=== PATIENT | female | born 1965 | race Caucasian/White ===

== ENCOUNTER 2016-03-13 18:31 | Emergency (ER) | payer OTHER ==
[~2016-03-13] VITALS: Ht 175.2 cm; Wt 90.7 kg
[2016-03-13 18:31] VITALS: BP 136/79
[~2016-03-13 18:31] MED LIST: AMOXICILLIN500 MG PO; DULE1ARO1 INH; FLEXERIL10 MG PO; HYDROCODONE BIT1 T11 PO; IMITREX5 MG NS; KLONOPIN2 MG PO; MOTRIN800 MG PO; Motrin,Rufen800 MG PO; NAPROSYN500 MG PO; NORCO 325 MG-51 TAB PO; PARAFON FORTE500 MG PO; PREDNICOT10 MG PO; PRILOSEC20 MG PO; PROZAC40 MG PO; ROBITUSSIN AC 110 ML PO; SYNTHROID,LEV200 MCG PO; TIZANIDINE HYDRO4 MG PO; TOPAMAX25 MG PO; VENTOLIN0.09 MG/AC INH; VIBRAMYCIN100 MG PO; VICO10300 PO; VICO75300 PO; XANAX1 MG PO; ZOFRAN4 MG PO
[2016-03-13 19:30] LABS: BASO % 0.5 % (0.0-1.0); EOS # 0.2 10*3/uL (0.0-0.4); EOS % 3.7 % (1.0-4.0); HEMATOCRIT 37.5 % (37.0-47.0); HEMOGLOBIN 12.4 g/dl (12.0-16.0); LYMPH # 1.3 10*3/uL (1.3-4.4); LYMPH % 23.4 % (27.0-41.0); MEAN CELL VOLUME 88.7 fl (81.0-99.0); MEAN CORPUSCULAR HGB 29.3 pg (27.0-31.0); MEAN CORPUSCULAR HGB CONC 33.1 g/dl (33.0-37.0); MEAN PLATELET VOLUME 10.1 fl (9.6-12.3); MONO # 0.3 10*3/uL (0.1-1.0); MONO % 5.2 % (3.0-9.0); NEUT # 3.7 10*3/uL (2.3-7.9); NEUT % 66.7 % (47.0-73.0); PLATELET COUNT AUTOMATED 225 10*3/uL (130-400); RED BLOOD COUNT 4.23 10*6/uL (4.10-5.10); WHITE BLOOD COUNT 5.6 10*3/uL (4.8-10.8)
[2016-03-13 19:41] LABS: PROTHROMBIN TIME 10.1 SECONDS (9.0-12.4)
[2016-03-13 19:45] LABS: ALBUMIN 3.7 gm/dl (3.1-4.5); ALKALINE PHOSPHATASE 84 U/L (45-117); BILIRUBIN, TOTAL 0.3 mg/dl (0.2-1.0); BUN 12 mg/dl (7-24); CARBON DIOXIDE 25 mmol/L (21-32); CHLORIDE 105 mmol/L (98-107); EST GLOM FILT AFRICAN AMERICAN > 60 ml/min; GLUCOSE 117 mg/dL (65-99); POTASSIUM 3.4 mmol/L (3.5-5.1); SGOT/AST 33 IU/L (3-35); SGPT/ALT 32 U/L (12-78); SODIUM 142 mmol/L (136-145); TOTAL PROTEIN 7.1 gm/dL (6.4-8.2)
[2016-03-13] MEDS ORDERED: NORCO 5-325 TA1 EACH PO (21:39)
[2016-03-13] MEDS ORDERED: VALIUM5 MG PO (21:39)
[2016-03-13] MEDS ORDERED: NAPROSYN500 MG PO (21:39)
== END 2016-03-13 21:43 | disposition home or self-care (01) ==
LOC: ED 18:31
PROVIDERS: Internal Medicine
DX: S51.011A Laceration without foreign body of right elbow, initial encounter (principal); Z90.49 Acquired absence of other specified parts of digestive tract; Z98.890 Other specified postprocedural states; V49.88XA Car occupant (driver) (passenger) injured in other specified transport accidents, initial encounter; Y93.89 Activity, other specified; Y92.89 Other specified places as the place of occurrence of the external cause; Y99.9 Unspecified external cause status

== ENCOUNTER 2016-03-16 21:19 | Emergency (ER) | payer OTHER ==
[~2016-03-16] VITALS: Ht 172.7 cm; Wt 106.6 kg
[~2016-03-16 21:19] MED LIST changes: +NORCO 5-325 TA1 EACH PO; +VALIUM5 MG PO
[2016-03-16 21:37] VITALS: BP 120/102
[2016-03-16 22:23] LABS: BASO # 0.1 10*3/uL (0.0-0.1); BASO % 0.9 % (0.0-1.0); EOS # 0.4 10*3/uL (0.0-0.4); EOS % 5.5 % (1.0-4.0); HEMOGLOBIN 12.7 g/dl (12.0-16.0); LYMPH # 1.6 10*3/uL (1.3-4.4); LYMPH % 24.3 % (27.0-41.0); MEAN CELL VOLUME 86.8 fl (81.0-99.0); MEAN CORPUSCULAR HGB CONC 33.4 g/dl (33.0-37.0); MEAN PLATELET VOLUME 10.1 fl (9.6-12.3); MONO # 0.5 10*3/uL (0.1-1.0); NEUT # 4.1 10*3/uL (2.3-7.9); NEUT % 60.7 % (47.0-73.0); PLATELET COUNT AUTOMATED 269 10*3/uL (130-400); RED BLOOD COUNT 4.38 10*6/uL (4.10-5.10); RED CELL DISTRI WIDTH 12.7 % (0-14.5); WHITE BLOOD COUNT 6.7 10*3/uL (4.8-10.8)
[2016-03-16 22:49] LABS: ALBUMIN 3.7 gm/dl (3.1-4.5); BILIRUBIN, TOTAL 0.3 mg/dl (0.2-1.0); POTASSIUM 3.9 mmol/L (3.5-5.1); TOTAL PROTEIN 6.9 gm/dL (6.4-8.2)
[2016-03-16 22:52] LABS: BILIRUBIN 1+ (NEGATIVE); BLOOD NEGATIVE (NEGATIVE); CLARITY CLEAR (CLEAR); COLOR YELLOW (YELLOW); GLUCOSE NEGATIVE (NEGATIVE); KETONE 1+ (NEGATIVE); LEUKO ESTERASE NEGATIVE (NEGATIVE); NITRITE NEGATIVE (NEGATIVE); PH 5.5 (5.0-9.0); PROTEIN TRACE (NEGATIVE); SPECIFIC GRAVITY 1.025 (1.005-1.030); UROBILINOGEN 0.2 E.U./dl (0.2-1.0)
[2016-03-16 22:57] LABS: PROTHROMBIN TIME 10.1 SECONDS (9.0-12.4)
[2016-03-16 23:06] LABS: BACTERIA 2+; MUCOUS 2+; URINE REFLEX COMMENT YES (NO)
== END 2016-03-16 23:36 | disposition home or self-care (01) ==
LOC: ED 21:19
PROVIDERS: Physician Assistant
DX: S06.0X0A Concussion without loss of consciousness, initial encounter (principal); Z90.49 Acquired absence of other specified parts of digestive tract; Z98.890 Other specified postprocedural states; V49.88XA Car occupant (driver) (passenger) injured in other specified transport accidents, initial encounter; Y93.89 Activity, other specified; Y92.89 Other specified places as the place of occurrence of the external cause; Y99.9 Unspecified external cause status

== ENCOUNTER 2016-06-06 13:15 | Emergency (ER) | payer OTHER ==
[~2016-06-06] VITALS: Ht 172.7 cm; Wt 102.1 kg
[2016-06-06 13:42] VITALS: BP 147/90
[2016-06-06] MEDS ORDERED: NAPROSYN500 MG PO (13:45)
[2016-06-06] MEDS ORDERED: 'PARAFON FORTE500 M1 PO (13:45)
== END 2016-06-06 15:52 | disposition home or self-care (01) ==
LOC: ED 13:15
DX: M54.41 Lumbago with sciatica, right side (principal); R03.0 Elevated blood-pressure reading, without diagnosis of hypertension; Z79.899 Other long term (current) drug therapy

== ENCOUNTER 2016-06-17 19:05 | Emergency (ER) | payer OTHER ==
[~2016-06-17] VITALS: Ht 172.7 cm; Wt 104.3 kg
[~2016-06-17 19:05] MED LIST changes: +'PARAFON FORTE500 M1 PO
[2016-06-17 19:13] VITALS: BP 134/86
[2016-06-17] MEDS ORDERED: Motrin,Rufen800 MG PO (20:39)
[2016-06-17] MEDS ORDERED: HYDROCODONE BIT1 T11 PO (20:39)
[2016-06-17] MEDS ORDERED: CYCLOBENZAPRINE5 M3 PO (20:39)
== END 2016-06-17 21:00 | disposition home or self-care (01) ==
LOC: ED 19:05
DX: S16.1XXA Strain of muscle, fascia and tendon at neck level, initial encounter (principal); S39.012A Strain of muscle, fascia and tendon of lower back, initial encounter; Z90.49 Acquired absence of other specified parts of digestive tract; Z79.899 Other long term (current) drug therapy; V89.2XXA Person injured in unspecified motor-vehicle accident, traffic, initial encounter; Y93.89 Activity, other specified; Y92.413 State road as the place of occurrence of the external cause; Y99.9 Unspecified external cause status

== ENCOUNTER 2016-08-22 16:21 | Emergency (ER) | payer OTHER ==
[~2016-08-22] VITALS: Ht 172.7 cm; Wt 102.1 kg
[~2016-08-22 16:21] MED LIST changes: +CYCLOBENZAPRINE5 M3 PO
[2016-08-22 17:06] VITALS: BP 125/81
[2016-08-22] MEDS ORDERED: TRINTELLIX20 MG PO (17:09)
[2016-08-22 17:38] LABS: BASO % 0.7 % (0.0-1.0); EOS # 0.2 10*3/uL (0.0-0.4); EOS % 2.9 % (1.0-4.0); HEMOGLOBIN 12.8 g/dl (12.0-16.0); LYMPH # 1.6 10*3/uL (1.3-4.4); LYMPH % 27.8 % (27.0-41.0); MEAN CORPUSCULAR HGB 29.2 pg (27.0-31.0); MEAN CORPUSCULAR HGB CONC 32.8 g/dl (33.0-37.0); MEAN PLATELET VOLUME 10.1 fl (9.6-12.3); MONO # 0.4 10*3/uL (0.1-1.0); MONO % 6.6 % (3.0-9.0); NEUT # 3.4 10*3/uL (2.3-7.9); NEUT % 61.6 % (47.0-73.0); PLATELET COUNT AUTOMATED 212 10*3/uL (130-400); RED BLOOD COUNT 4.38 10*6/uL (4.10-5.10); RED CELL DISTRI WIDTH 13.5 % (0-14.5); WHITE BLOOD COUNT 5.6 10*3/uL (4.8-10.8)
[2016-08-22 17:47] LABS: PROTHROMBIN TIME 10.2 SECONDS (9.0-12.4)
[2016-08-22 17:54] LABS: ALBUMIN 3.8 gm/dl (3.1-4.5); ALKALINE PHOSPHATASE 87 U/L (45-117); BILIRUBIN, TOTAL 0.3 mg/dl (0.2-1.0); BUN 16 mg/dl (7-24); C-REACTIVE PROTEIN 0.51 MG/DL (0-0.3); CARBON DIOXIDE 29 mmol/L (21-32); CHLORIDE 102 mmol/L (98-107); CKMB < 0.5 ng/ml (0.5-3.6); CPK 121 U/L (26-192); EST GLOM FILT AFRICAN AMERICAN 46 ml/min; GLUCOSE 112 mg/dL (65-99); MAGNESIUM 1.9 mg/dL (1.5-2.1); POTASSIUM 4.2 mmol/L (3.5-5.1); SGOT/AST 21 IU/L (3-35); SGPT/ALT 26 U/L (12-78); SODIUM 143 mmol/L (136-145); TOTAL PROTEIN 7.2 gm/dL (6.4-8.2); TROPONIN I < 0.015 ng/ml (<0.045)
[2016-08-22 18:08] LABS: BILIRUBIN NEGATIVE (NEGATIVE); BLOOD NEGATIVE (NEGATIVE); CLARITY SL CLOUDY (CLEAR); COLOR YELLOW (YELLOW); GLUCOSE NEGATIVE (NEGATIVE); KETONE NEGATIVE (NEGATIVE); LEUKO ESTERASE NEGATIVE (NEGATIVE); NITRITE NEGATIVE (NEGATIVE); PROTEIN NEGATIVE (NEGATIVE); UROBILINOGEN 0.2 E.U./dl (0.2-1.0)
[2016-08-22 18:20] LABS: BACTERIA 2+; URINE REFLEX COMMENT YES (NO)
[2016-08-22 18:21] LABS: EPITHELIAL CELLS 16-20
[2016-08-22] MEDS ORDERED: CARAFATE1 G1 PO (20:58)
== END 2016-08-22 21:30 | disposition home or self-care (01) ==
LOC: ED 16:21
PROVIDERS: Emergency Medicine
DX: K29.00 Acute gastritis without bleeding (principal); M54.9 Dorsalgia, unspecified; Z79.899 Other long term (current) drug therapy

== ENCOUNTER 2016-09-05 12:37 | Emergency (ER) | payer OTHER ==
[~2016-09-05] VITALS: Wt 101.2 kg
[~2016-09-05 12:37] MED LIST changes: +CARAFATE1 G1 PO; +TRINTELLIX20 MG PO
[2016-09-05 12:43] VITALS: BP 106/67
[2016-09-05] MEDS ORDERED: CLONAZEPAM0.5 M1 PO (12:45)
[2016-09-05] MEDS ORDERED: LEVOTHYROXINE0.2 MG PO (12:46)
[2016-09-05 13:05] LABS: BILIRUBIN NEGATIVE (NEGATIVE); BLOOD NEGATIVE (NEGATIVE); CLARITY CLEAR (CLEAR); COLOR YELLOW (YELLOW); GLUCOSE NEGATIVE (NEGATIVE); KETONE NEGATIVE (NEGATIVE); LEUKO ESTERASE NEGATIVE (NEGATIVE); NITRITE NEGATIVE (NEGATIVE); PROTEIN NEGATIVE (NEGATIVE); UROBILINOGEN 0.2 E.U./dl (0.2-1.0)
[2016-09-05 13:11] LABS: BASO % 0.4 % (0.0-1.0); EOS # 0.1 10*3/uL (0.0-0.4); EOS % 2.1 % (1.0-4.0); HEMATOCRIT 40.1 % (37.0-47.0); HEMOGLOBIN 13.4 g/dl (12.0-16.0); LYMPH # 1.5 10*3/uL (1.3-4.4); LYMPH % 25.6 % (27.0-41.0); MEAN CELL VOLUME 88.3 fl (81.0-99.0); MEAN CORPUSCULAR HGB 29.5 pg (27.0-31.0); MEAN CORPUSCULAR HGB CONC 33.4 g/dl (33.0-37.0); MEAN PLATELET VOLUME 9.9 fl (9.6-12.3); MONO # 0.4 10*3/uL (0.1-1.0); MONO % 7.1 % (3.0-9.0); NEUT # 3.7 10*3/uL (2.3-7.9); NEUT % 64.3 % (47.0-73.0); PLATELET COUNT AUTOMATED 260 10*3/uL (130-400); RED BLOOD COUNT 4.54 10*6/uL (4.10-5.10); RED CELL DISTRI WIDTH 13.2 % (0-14.5); WHITE BLOOD COUNT 5.7 10*3/uL (4.8-10.8)
[2016-09-05 13:20] LABS: BACTERIA 1+; EPITHELIAL CELLS 0-2; URINE REFLEX COMMENT NO (NO); WBC 0-2 wbc/hpf (0-5)
[2016-09-05 13:26] LABS: ALBUMIN 3.7 gm/dl (3.1-4.5); BILIRUBIN, TOTAL 0.4 mg/dl (0.2-1.0); POTASSIUM 4.1 mmol/L (3.5-5.1); TOTAL PROTEIN 7.3 gm/dL (6.4-8.2)
[2016-09-05] MEDS ORDERED: ZOFRAN4 MG PO (13:31)
[2016-09-05] MEDS ORDERED: NAPROSYN500 MG PO (13:31)
== END 2016-09-05 13:37 | disposition home or self-care (01) ==
LOC: ED 12:37
PROVIDERS: Nurse Practitioner Family
DX: R10.9 Unspecified abdominal pain (principal); Z90.49 Acquired absence of other specified parts of digestive tract

== ENCOUNTER 2016-11-16 19:18 | Emergency (ER) | payer OTHER ==
[~2016-11-16] VITALS: Ht 172.7 cm; Wt 106.6 kg
[~2016-11-16 19:18] MED LIST changes: +CLONAZEPAM0.5 M1 PO; +LEVOTHYROXINE0.2 MG PO
[2016-11-16 19:34] VITALS: BP 180/100
[2016-11-16 20:15] LABS: BASO % 0.4 % (0.0-1.0); EOS # 0.1 10*3/uL (0.0-0.4); EOS % 0.9 % (1.0-4.0); HEMATOCRIT 44.3 % (37.0-47.0); HEMOGLOBIN 14.9 g/dl (12.0-16.0); LYMPH # 2.2 10*3/uL (1.3-4.4); LYMPH % 19.6 % (27.0-41.0); MEAN CELL VOLUME 90.2 fl (81.0-99.0); MEAN CORPUSCULAR HGB 30.3 pg (27.0-31.0); MEAN CORPUSCULAR HGB CONC 33.6 g/dl (33.0-37.0); MEAN PLATELET VOLUME 9.8 fl (9.6-12.3); MONO # 0.8 10*3/uL (0.1-1.0); MONO % 6.9 % (3.0-9.0); NEUT # 8.1 10*3/uL (2.3-7.9); NEUT % 71.8 % (47.0-73.0); PLATELET COUNT AUTOMATED 331 10*3/uL (130-400); RED BLOOD COUNT 4.91 10*6/uL (4.10-5.10); RED CELL DISTRI WIDTH 13.9 % (0-14.5); WHITE BLOOD COUNT 11.2 10*3/uL (4.8-10.8)
[2016-11-16 20:31] LABS: ALBUMIN 4.4 gm/dl (3.1-4.5); CREATININE 1.28 mg/dL (0.55-1.02); POTASSIUM 3.5 mmol/L (3.5-5.1); TOTAL PROTEIN 8.7 gm/dL (6.4-8.2)
[2016-11-16] MEDS ORDERED: ZOFRAN ODT4 MG SL (23:00)
== END 2016-11-16 23:21 | disposition home or self-care (01) ==
LOC: ED 19:18
PROVIDERS: Physician Assistant
DX: R10.13 Epigastric pain (principal); R11.2 Nausea with vomiting, unspecified; Z90.49 Acquired absence of other specified parts of digestive tract; Z98.890 Other specified postprocedural states; Z79.899 Other long term (current) drug therapy

== ENCOUNTER 2017-01-27 15:28 | Emergency (ER) | payer OTHER ==
[~2017-01-27] VITALS: Wt 99.3 kg
[~2017-01-27 15:28] MED LIST changes: +ZOFRAN ODT4 MG SL
[2017-01-27 15:52] VITALS: BP 99/56
[2017-01-27] MEDS ORDERED: VICODIN 5-3001 EACH PO (15:53)
[2017-01-27 16:23] LABS: BILIRUBIN NEGATIVE (NEGATIVE); BLOOD NEGATIVE (NEGATIVE); CLARITY CLEAR (CLEAR); COLOR YELLOW (YELLOW); GLUCOSE NEGATIVE (NEGATIVE); KETONE NEGATIVE (NEGATIVE); LEUKO ESTERASE NEGATIVE (NEGATIVE); NITRITE NEGATIVE (NEGATIVE); PH 5.5 (5.0-9.0); UROBILINOGEN 0.2 E.U./dl (0.2-1.0)
[2017-01-27 16:25] LABS: BASO % 0.6 % (0.0-1.0); EOS # 0.5 10*3/uL (0.0-0.4); EOS % 6.9 % (1.0-4.0); HEMATOCRIT 40.7 % (37.0-47.0); HEMOGLOBIN 13.6 g/dl (12.0-16.0); LYMPH # 1.3 10*3/uL (1.3-4.4); LYMPH % 19.4 % (27.0-41.0); MEAN CELL VOLUME 92.5 fl (81.0-99.0); MEAN CORPUSCULAR HGB 30.9 pg (27.0-31.0); MEAN CORPUSCULAR HGB CONC 33.4 g/dl (33.0-37.0); MEAN PLATELET VOLUME 9.9 fl (9.6-12.3); MONO # 0.4 10*3/uL (0.1-1.0); MONO % 5.4 % (3.0-9.0); NEUT # 4.4 10*3/uL (2.3-7.9); NEUT % 67.5 % (47.0-73.0); PLATELET COUNT AUTOMATED 242 10*3/uL (130-400); RED CELL DISTRI WIDTH 12.2 % (0-14.5); WHITE BLOOD COUNT 6.5 10*3/uL (4.8-10.8)
[2017-01-27 16:41] LABS: BACTERIA TRACE; WBC 0-2 wbc/hpf (0-5)
[2017-01-27 16:41] LABS: ALBUMIN 4.2 gm/dl (3.1-4.5); CREATININE 1.16 mg/dL (0.55-1.02); POTASSIUM 5.2 mmol/L (3.5-5.1); TOTAL PROTEIN 7.6 gm/dL (6.4-8.2)
[2017-01-27] MEDS ORDERED: NORCO 10-325 T1 EACH PO (17:43)
== END 2017-01-27 16:58 | disposition home or self-care (01) ==
LOC: ED 15:28
PROVIDERS: Emergency Medicine
DX: R19.00 Intra-abdominal and pelvic swelling, mass and lump, unspecified site (principal); Z79.899 Other long term (current) drug therapy; Z90.49 Acquired absence of other specified parts of digestive tract

== ENCOUNTER → 2017-01-28 | Outpatient (CLI) | payer OTHER ==
[~2017-01-28] MED LIST changes: +NORCO 10-325 T1 EACH PO; +VICODIN 5-3001 EACH PO
== END | disposition home or self-care (01) ==
LOC: US 14:23
DX: N83.8 Other noninflammatory disorders of ovary, fallopian tube and broad ligament (principal); Z90.710 Acquired absence of both cervix and uterus

== ENCOUNTER 2017-01-29 09:21 | Emergency (ER) | payer OTHER ==
[~2017-01-29] VITALS: Ht 172.7 cm; Wt 99.3 kg
[2017-01-29 09:55] LABS: BASO % 0.2 % (0.0-1.0); EOS # 0.1 10*3/uL (0.0-0.4); EOS % 1.2 % (1.0-4.0); HEMATOCRIT 35.1 % (37.0-47.0); HEMOGLOBIN 11.5 g/dl (12.0-16.0); LYMPH # 0.7 10*3/uL (1.3-4.4); LYMPH % 6.8 % (27.0-41.0); MEAN CELL VOLUME 93.1 fl (81.0-99.0); MEAN CORPUSCULAR HGB 30.5 pg (27.0-31.0); MEAN CORPUSCULAR HGB CONC 32.8 g/dl (33.0-37.0); MEAN PLATELET VOLUME 9.8 fl (9.6-12.3); MONO # 0.9 10*3/uL (0.1-1.0); MONO % 9.3 % (3.0-9.0); NEUT # 7.9 10*3/uL (2.3-7.9); NEUT % 82.1 % (47.0-73.0); PLATELET COUNT AUTOMATED 213 10*3/uL (130-400); RED BLOOD COUNT 3.77 10*6/uL (4.10-5.10); RED CELL DISTRI WIDTH 12.5 % (0-14.5); WHITE BLOOD COUNT 9.6 10*3/uL (4.8-10.8)
[2017-01-29 10:11] LABS: ALBUMIN 3.6 gm/dl (3.1-4.5); ALKALINE PHOSPHATASE 82 U/L (45-117); BUN 14 mg/dl (7-24); CHLORIDE 101 mmol/L (98-107); CREATININE 1.12 mg/dL (0.55-1.02); SGOT/AST 14 IU/L (3-35); SGPT/ALT 13 U/L (12-78); SODIUM 138 mmol/L (136-145); TOTAL PROTEIN 7.1 gm/dL (6.4-8.2)
[2017-01-29 10:14] LABS: POTASSIUM 4.1 mmol/L (3.5-5.1)
[2017-01-29 14:56] VITALS: BP 104/60
== END 2017-01-29 16:28 | disposition short-term general hospital (02) ==
LOC: ED 09:21
PROVIDERS: Nurse Practitioner Family
DX: R10.31 Right lower quadrant pain (principal); R10.32 Left lower quadrant pain; R19.00 Intra-abdominal and pelvic swelling, mass and lump, unspecified site

== ENCOUNTER 2017-02-16 15:50 | Emergency (ER) | payer OTHER ==
[~2017-02-16] VITALS: Ht 172.7 cm; Wt 99.8 kg
[~2017-02-16 15:50] MED LIST changes: -LEVOTHYROXINE0.2 MG PO; +LEVOTHYROXINE200 MC2 PO
[2017-02-16 15:54] VITALS: BP 119/79
[2017-02-19] MEDS ORDERED: PROTONIX40 MG PO (11:14)
[2017-02-19] MEDS ORDERED: TRAZODONE100 MG PO (11:18)
[2017-02-19] MEDS ORDERED: FLONASE ALLERG9.9 ML NAS (11:19)
== END 2017-02-16 16:17 | disposition home or self-care (01) ==
LOC: ED 15:50
DX: G89.29 Other chronic pain (principal); R10.2 Pelvic and perineal pain; Z79.899 Other long term (current) drug therapy; Z90.49 Acquired absence of other specified parts of digestive tract; Z98.890 Other specified postprocedural states

== ENCOUNTER 2017-02-23 03:05 | Inpatient (IN) | payer OTHER ==
[2017-02-19 12:42] LABS: BASO % 0.4 % (0.0-1.0); EOS # 0.1 10*3/uL (0.0-0.4); HEMATOCRIT 37.2 % (37.0-47.0); HEMOGLOBIN 11.8 g/dl (12.0-16.0); LYMPH # 1.1 10*3/uL (1.3-4.4); LYMPH % 13.3 % (27.0-41.0); MEAN CELL VOLUME 91.6 fl (81.0-99.0); MEAN CORPUSCULAR HGB 29.1 pg (27.0-31.0); MEAN CORPUSCULAR HGB CONC 31.7 g/dl (33.0-37.0); MEAN PLATELET VOLUME 9.5 fl (9.6-12.3); MONO # 0.5 10*3/uL (0.1-1.0); MONO % 5.8 % (3.0-9.0); NEUT # 6.5 10*3/uL (2.3-7.9); NEUT % 79.3 % (47.0-73.0); PLATELET COUNT AUTOMATED 511 10*3/uL (130-400); RED BLOOD COUNT 4.06 10*6/uL (4.10-5.10); RED CELL DISTRI WIDTH 12.6 % (0-14.5); WHITE BLOOD COUNT 8.2 10*3/uL (4.8-10.8)
[2017-02-19 13:13] LABS: BUN 14 mg/dl (7-24); CHLORIDE 102 mmol/L (98-107); CREATININE 1.11 mg/dL (0.55-1.02); POTASSIUM 3.9 mmol/L (3.5-5.1); SODIUM 139 mmol/L (136-145)
[2017-02-19 13:14] LABS: CEA 1.5 ng/mL
[2017-02-23] VITALS (10 sets, daily range): BP systolic 115–158; BP diastolic 73–122
[~2017-02-23] VITALS: Ht 172.7 cm; Wt 102.2 kg
--- NOTE | ~2017-02-23 | O ---
[place], [place] OPERATIVE NOTE NAME: EMILY CAMARA [facility] #: [id number] UNIT #: [id number] ROOM: 522 DOCTOR: ROSIE HANNA MD BIRTHDATE: [birth year] DOS: 02/23/2017 PREOPERATIVE DIAGNOSES: Right lower quadrant pain, pelvic mass and previous history of uterine cancer. POSTOPERATIVE DIAGNOSES: Right lower quadrant pain, pelvic mass and previous history of uterine cancer. PROCEDURE: Diagnostic laparoscopy, conversion to laparotomy, excision of pelvic mass and incidental appendectomy. SURGEON: Rosie Hanna MD ANESTHESIA: General and local, 12 mL of 0.5% Marcaine plain. INDICATIONS: This is a 51-year-old lady who presented to the office with a pelvic mass and right lower quadrant pain. She has a previous history of uterine cancer, reportedly preinvasive per her several years ago, with hysterectomy performed in 2011 in [facility], reportedly with one ovary removed and one ovary left in place on the right. She does not have any pathologic documentation of this, however. She subsequently had been fine until starting to have abdominal pain, which was diagnosed in the Emergency Room in mid January. She was actually seen in [place] at [facility] and was to have surgery before [place], but then canceled this due to some sort of logistical reason as best I could understand and then presented again in this institution for the same complaints. She seemed to have a complex pelvic mass more to the right side, possibly from the adnexa on the right. Preoperative tumor markers were unremarkable with a CA-125 of 24.3 and beta hCG of 9.0 and CEA of 1.5 ng/dL. Rest of her laboratory work for the most part was unremarkable. She is now for diagnostic laparoscopy and exploration with the risks, benefits, possible complications of procedure discussed with the patient in the office preoperatively at length. DESCRIPTION OF PROCEDURE: The patient brought to the operating suite and placed on table in supine position. Adequate conscious sedation and general anesthetic was induced. Endotracheal tube was placed and secured. Abdomen was prepped and draped in usual sterile fashion. Field block was placed over the umbilicus with 0.5% Marcaine plain and a small transverse supraumbilical incision was made and carried with cautery and blunt dissection down to the anterior fascia. This was elevated between towel clips and a Veress needle inserted in the usual fashion. Intraperitoneal placement was confirmed with saline drop test and aspiration. Pneumoperitoneum was then created without difficulty to a filling pressure of 14 mmHg and approximately 3 liters carbon dioxide flow. The abdomen was then cannulated with 5 mm bladeless XL trocar with a 0 degree laparoscope within. Intraperitoneal placement was confirmed and the laparoscope reinserted after removing the obturator. The patient was immediately seen to have some sort of inflammatory process in the right lower quadrant, which did not appear to involve the appendix ____ was inferior and slightly lateral. There was a little bit of what looks like inflammatory change and/old blood present. The patient had the trocars then placed in the left mid lower quadrant and suprapubic [place], [place] OPERATIVE NOTE NAME: EMILY CAMARA UNIT #: [id number] ROOM: 2 DOCTOR: ROSIE HANNA MD BIRTHDATE: [birth year] through separate stab incisions under local anesthesia under direct visualization, including upsizing the umbilical port to a 12 mm port. The patient was placed in steep Trendelenburg position and rolled towards the wet end operator on the patient's left side. Dissection ensued and the patient was seen to have a rounded dark colored mass with the cecum and the tip of the appendix as well as some of small bowel adherent to this. This was swept away, but clear plane could not be seen. After several minutes of dissection, it was decided given the difficulties with ascertaining where the ureter might be as well as the possible attachments to vascular structures, it was decided to open. The patient was then rolled back in a supine position and opened through a standard low midline incision, connecting supraumbilical incision to the suprapubic port site. Once this was done, self-retaining retractor was placed and the bowel packed off. The area was inspected and the tip of the appendix was seen and was bluntly freed from this. The lesion in question was smooth, was roughly 8 cm in greatest dimension and rounded and consistent with possibly an old organized hematoma versus some sort of mesenteric cyst. With careful blunt and sharp dissection, it was freed and elevated up into the pelvis with a small pedicle still remaining from the pelvic sidewall, which was presumably part of the ovarian pedicle or broad ligament. This was seen to be lateral and well away from the ureter and iliac vessels and was clamped and divided between clamps and ligated with 0 Vicryl free tie. Specimen was handed off to pathology. This was grossly sectioned and inspected and appeared to be an organized hematoma. The attention was directed to the pelvis and the area was irrigated and suctioned dry and with this done, attention was directed to the appendix. A standard appendectomy was performed, dividing the base of the appendix between ligatures of 2-0 Vicryl, incising this and then ligating them ____ mesoappendix in similar fashion with 2-0 Vicryl and handing off the specimen. The area was irrigated once more. A 3 grams of Arixtra was placed to the leaf of the mesentery where this lesion had been adherent. It was inspected carefully for bleeding and there were no further sites present. With no further pathology, the attention was directed to wound closure. The laparotomy incision was closed en germain with 0 looped PDS from each corner, tied in the midline. The subdermal 3-0 Vicryl sutures were placed along the length of the incision. The skin was approximated with proximate clips. No drains were placed. The patient tolerated this well. She was allowed to awaken in the room and went to recovery after extubation in satisfactory condition. All sponge, needle and instrument counts were correct at the end of procedure. She received antibiotic prophylaxis and weight appropriate dose with cefazolin per SCIP protocol. She had compression devices to the lower extremities for DVT prophylaxis as well. [place], [place] OPERATIVE NOTE NAME: EMILY CAMARA Melissa UNIT #: [id number] ROOM: 522 DOCTOR: ROSIE HANNA MD BIRTHDATE: [birth year] ROSIE HANNA MD CM:OPRECORD:OPERATIVE NOTE [id number] ROSIE HANNA MD 02/23/17 185 interface
[~2017-02-23 03:05] MED LIST changes: +FLONASE ALLERG9.9 ML NAS; +PROTONIX40 MG PO; +TRAZODONE100 MG PO
[2017-02-23] MEDS ORDERED: ZANTAC 150150 MG PO (13:38)
[2017-02-24] VITALS: BP 152/81
[2017-02-24 07:28] LABS: BASO % 0.1 % (0.0-1.0); HEMATOCRIT 32.1 % (37.0-47.0); HEMOGLOBIN 10.3 g/dl (12.0-16.0); LYMPH # 1.1 10*3/uL (1.3-4.4); LYMPH % 9.8 % (27.0-41.0); MEAN CELL VOLUME 91.2 fl (81.0-99.0); MEAN CORPUSCULAR HGB 29.3 pg (27.0-31.0); MEAN CORPUSCULAR HGB CONC 32.1 g/dl (33.0-37.0); MEAN PLATELET VOLUME 10.2 fl (9.6-12.3); MONO % 8.8 % (3.0-9.0); NEUT # 9.4 10*3/uL (2.3-7.9); NEUT % 80.9 % (47.0-73.0); PLATELET COUNT AUTOMATED 370 10*3/uL (130-400); RED BLOOD COUNT 3.52 10*6/uL (4.10-5.10); RED CELL DISTRI WIDTH 12.7 % (0-14.5); WHITE BLOOD COUNT 11.7 10*3/uL (4.8-10.8)
[2017-02-24 07:39] LABS: ALBUMIN 3.2 gm/dl (3.1-4.5); ALKALINE PHOSPHATASE 96 U/L (45-117); BUN 9 mg/dl (7-24); CHLORIDE 105 mmol/L (98-107); CREATININE 1.01 mg/dL (0.55-1.02); POTASSIUM 3.7 mmol/L (3.5-5.1); SGOT/AST 54 IU/L (3-35); SGPT/ALT 62 U/L (12-78); SODIUM 141 mmol/L (136-145); TOTAL PROTEIN 6.7 gm/dL (6.4-8.2)
[2017-02-24 08:00] VITALS: BP 132/86
[2017-02-24 12:00] VITALS: BP 138/80
[2017-02-24 16:00] VITALS: BP 91/61
[2017-02-24 20:00] VITALS: BP 96/56
[2017-02-25] VITALS: BP 91/60
[2017-02-25 08:00] VITALS: BP 112/76
[2017-02-25 12:00] VITALS: BP 108/70
[2017-02-25] MEDS ORDERED: NORCO 5/325 PO (13:01)
== END 2017-02-25 14:27 | disposition home or self-care (01) | DRG 743 ==
LOC: SDC 03:05 → 5E 10:06 → SDC 10:15 → 5E 02-25 14:27
PROC: 0UT00ZZ Resection of Right Ovary, Open Approach (ICD-10-PCS; principal; 2017-02-23)
PROC: 0DTJ0ZZ Resection of Appendix, Open Approach (ICD-10-PCS; 2017-02-23)
PROC: 0DJD4ZZ Inspection of Lower Intestinal Tract, Percutaneous Endoscopic Approach (ICD-10-PCS; 2017-02-23)
DX: N83.8 Other noninflammatory disorders of ovary, fallopian tube and broad ligament (principal); K36 Other appendicitis; R19.03 Right lower quadrant abdominal swelling, mass and lump; Z85.42 Personal history of malignant neoplasm of other parts of uterus; Z90.710 Acquired absence of both cervix and uterus; Z53.31 Laparoscopic surgical procedure converted to open procedure

== ENCOUNTER 2017-03-04 08:41 | Inpatient (IN) | payer OTHER ==
[~2017-03-04] VITALS: Ht 172.7 cm; Wt 99.8 kg
--- NOTE | ~2017-03-04 | PR ---
[place], [place] PROGRESS NOTE NAME: EMILY CAMARA UNIT #: [id number] ROOM: 415 DOCTOR: CANDIS AGUERO MD BIRTHDATE: [birth year] DOS: 03/14/2017 SUBJECTIVE: The patient was seen and evaluated in followup of acute kidney injury. She is doing well. She is not having any nausea, vomiting, emesis or diarrhea. She is hopeful for discharge today. Her creatinine does seem to be improving. Her urine output was not charted, but she has been polyuric on several occasions in the past few days and she does appear to be maintaining adequate hemodynamics. PHYSICAL EXAMINATION: VITAL SIGNS: 97.6, 98, 18, 154-130/65-85, pulse ox 94% on room air. GENERAL: Awake, alert and oriented, no acute distress, pleasant mood and affect. Speech clear and cogent. LUNGS: Clear bilaterally without audible rales or wheeze. CARDIOVASCULAR: Regular rate. No audible rub. ABDOMEN: Soft, nontender, nondistended. No rebound, no guarding. No CVA tenderness. SKIN: Infection is improving. EXTREMITIES: Without cyanosis. NEUROLOGIC: Gross motor and sensation are intact. LABORATORY DATA AND DIAGNOSTICS: Sodium 143, potassium 3.4, chloride 109, bicarbonate 26, BUN 36, creatinine 5.3. This is down from 6.98 and 7 on previous occasions. Calcium 8.5, phosphorus 4.7, magnesium 1.6, albumin 3.2. She had a nonspecific bowel gas on KUB and is otherwise looking pretty good. ASSESSMENT AND PLAN: Acute kidney injury, agree with okay to discharge at this point. She is to follow up with our office within 1-2 weeks with laboratories, prior discontinue use of any NSAIDs including ibuprofen. Recommend avoidance of FIORELLA inhibitors or ARBs, diuretics at this point. Mild hypertension is permissive in the short term and we will continue to follow in the outpatient setting. Thank you very much for the kind consultation. [place], [place] PROGRESS NOTE NAME: JAXDRAGANEMILY D UNIT #: [id number] ROOM: 415 DOCTOR: CANDIS AGUERO MD BIRTHDATE: [birth year] CANDIS AGUERO MD CM:BERNY [id number] CANDIS AGUERO MD 03/14/17 2145 interface
[~2017-03-04 08:41] MED LIST changes: +NORCO 5/325 PO; +TOPAMAX25 M3 PO; -TOPAMAX25 MG PO; +ZANTAC 150150 MG PO
[2017-03-04 08:47] VITALS: BP 128/87
[2017-03-04 09:10] LABS: BASO % 0.4 % (0.0-1.0); EOS # 0.1 10*3/uL (0.0-0.4); EOS % 1.1 % (1.0-4.0); HEMATOCRIT 39.1 % (37.0-47.0); HEMOGLOBIN 12.3 g/dl (12.0-16.0); LYMPH # 0.9 10*3/uL (1.3-4.4); LYMPH % 9.1 % (27.0-41.0); MEAN CELL VOLUME 88.9 fl (81.0-99.0); MEAN CORPUSCULAR HGB CONC 31.5 g/dl (33.0-37.0); MEAN PLATELET VOLUME 9.6 fl (9.6-12.3); MONO # 0.4 10*3/uL (0.1-1.0); MONO % 4.3 % (3.0-9.0); NEUT # 8.1 10*3/uL (2.3-7.9); NEUT % 84.5 % (47.0-73.0); PLATELET COUNT AUTOMATED 515 10*3/uL (130-400); RED CELL DISTRI WIDTH 13.1 % (0-14.5); WHITE BLOOD COUNT 9.6 10*3/uL (4.8-10.8)
[2017-03-04 09:19] LABS: ACT PARTIAL THROMBO TIME 28.7 SECONDS (20.8-31.5); INTERNATIONAL NORM RATIO 1.1 (2.0-3.5)
[2017-03-04 09:26] LABS: ALBUMIN 3.8 gm/dl (3.1-4.5); ALKALINE PHOSPHATASE 147 U/L (45-117); BUN 10 mg/dl (7-24); CHLORIDE 101 mmol/L (98-107); CREATININE 1.43 mg/dL (0.55-1.02); LIPASE 61 U/L (73-393); POTASSIUM 4.1 mmol/L (3.5-5.1); SGOT/AST 16 IU/L (3-35); SGPT/ALT 26 U/L (12-78); SODIUM 137 mmol/L (136-145); TOTAL PROTEIN 8.5 gm/dL (6.4-8.2)
[2017-03-04 09:27] LABS: TROPONIN I < 0.015 ng/ml (<0.045)
[2017-03-04 10:17] LABS: BILIRUBIN 1+ (NEGATIVE); BLOOD NEGATIVE (NEGATIVE); CLARITY SL CLOUDY (CLEAR); COLOR YELLOW (YELLOW); GLUCOSE NEGATIVE (NEGATIVE); KETONE NEGATIVE (NEGATIVE); LEUKO ESTERASE NEGATIVE (NEGATIVE); NITRITE NEGATIVE (NEGATIVE); UROBILINOGEN 0.2 E.U./dl (0.2-1.0)
[2017-03-04 10:31] LABS: BACTERIA 1+; FINE GRANULAR CAST 30-40; HYALINE CAST TNTC; MUCOUS 1+
[2017-03-04 13:25] VITALS: BP 122/80
[2017-03-04 13:54] VITALS: BP 154/80
[2017-03-04 14:00] VITALS: BP 154/80
[2017-03-04] MEDS ORDERED: NORCO 5-325 TA1 EACH PO (14:56)
[2017-03-04] MEDS ORDERED: TRINTELLIX10 MG PO (14:58)
[2017-03-04] MEDS ORDERED: ZANTAC 300300 MG PO (14:59)
[2017-03-04] MEDS ORDERED: Synthroid,Lev200 MCG PO (15:00)
[2017-03-04] MEDS ORDERED: SYNTHROID25 MCG PO (15:00)
[2017-03-04] MEDS ORDERED: ZOFRAN4 MG PO (15:04)
[2017-03-04] MEDS ORDERED: ZYRTEC10 MG PO (15:04)
[2017-03-04] MEDS ORDERED: MOTRIN 600 MG E4 TAB PO (15:05)
[2017-03-04] MEDS ORDERED: TYLENOL EXTRA500 MG PO (15:05)
[2017-03-04 16:00] VITALS: BP 154/95
[2017-03-04 20:00] VITALS: BP 125/76
[2017-03-05 00:04] VITALS: BP 84/51
[2017-03-05 07:07] LABS: BASO # 0.1 10*3/uL (0.0-0.1); BASO % 0.6 % (0.0-1.0); EOS # 0.4 10*3/uL (0.0-0.4); EOS % 5.3 % (1.0-4.0); HEMATOCRIT 31.9 % (37.0-47.0); HEMOGLOBIN 9.7 g/dl (12.0-16.0); LYMPH # 1.6 10*3/uL (1.3-4.4); MEAN CELL VOLUME 93.3 fl (81.0-99.0); MEAN CORPUSCULAR HGB 28.4 pg (27.0-31.0); MEAN CORPUSCULAR HGB CONC 30.4 g/dl (33.0-37.0); MEAN PLATELET VOLUME 9.6 fl (9.6-12.3); MONO # 0.9 10*3/uL (0.1-1.0); MONO % 10.6 % (3.0-9.0); NEUT # 5.1 10*3/uL (2.3-7.9); NEUT % 62.8 % (47.0-73.0); RED BLOOD COUNT 3.42 10*6/uL (4.10-5.10); RED CELL DISTRI WIDTH 13.2 % (0-14.5); WHITE BLOOD COUNT 8.1 10*3/uL (4.8-10.8)
[2017-03-05 07:08] LABS: PLATELET COUNT AUTOMATED 354 10*3/uL (130-400)
[2017-03-05 07:34] LABS: ALBUMIN 2.8 gm/dl (3.1-4.5); CREATININE 1.82 mg/dL (0.55-1.02)
[2017-03-05 07:36] LABS: PHOSPHOROUS 3.3 mg/dL (2.5-4.9); TOTAL PROTEIN 6.2 gm/dL (6.4-8.2)
[2017-03-05 07:56] LABS: VITAMIN D, 25-HYDROXY 11.5 ng/mL (30-100)
[2017-03-05 08:00] VITALS: BP 103/61
[2017-03-05 12:00] VITALS: BP 96/54
[2017-03-05 16:00] VITALS: BP 90/47
[2017-03-05 20:00] VITALS: BP 103/67
[2017-03-06] VITALS: BP 98/50
[2017-03-06 06:39] LABS: BASO % 0.5 % (0.0-1.0); EOS # 0.5 10*3/uL (0.0-0.4); EOS % 5.8 % (1.0-4.0); HEMATOCRIT 30.9 % (37.0-47.0); HEMOGLOBIN 9.3 g/dl (12.0-16.0); LYMPH # 1.5 10*3/uL (1.3-4.4); MEAN CELL VOLUME 92.2 fl (81.0-99.0); MEAN CORPUSCULAR HGB 27.8 pg (27.0-31.0); MEAN CORPUSCULAR HGB CONC 30.1 g/dl (33.0-37.0); MEAN PLATELET VOLUME 9.9 fl (9.6-12.3); MONO # 0.7 10*3/uL (0.1-1.0); MONO % 8.4 % (3.0-9.0); NEUT # 5.2 10*3/uL (2.3-7.9); NEUT % 65.5 % (47.0-73.0); PLATELET COUNT AUTOMATED 297 10*3/uL (130-400); RED BLOOD COUNT 3.35 10*6/uL (4.10-5.10); RED CELL DISTRI WIDTH 13.2 % (0-14.5)
[2017-03-06 06:50] LABS: CREATININE 4.4 mg/dL (0.55-1.02); POTASSIUM 4.1 mmol/L (3.5-5.1)
[2017-03-06 08:00] VITALS: BP 97/58
[2017-03-06 09:37] LABS: ALBUMIN 2.6 gm/dl (3.1-4.5); PHOSPHOROUS 4.7 mg/dL (2.5-4.9)
[2017-03-06 11:27] LABS: CREATININE 4.89 mg/dL (0.55-1.02); POTASSIUM 4.1 mmol/L (3.5-5.1)
[2017-03-06 12:00] VITALS: BP 84/59
[2017-03-06 16:00] VITALS: BP 102/55
[2017-03-06 20:00] VITALS: BP 105/62
[2017-03-06 20:53] LABS: URINE CREATININE RANDOM 39.4 mg/dL
[2017-03-07] VITALS: BP 98/62
[2017-03-07 07:47] LABS: ALBUMIN 2.3 gm/dl (3.1-4.5); CREATININE 6.04 mg/dL (0.55-1.02); PHOSPHOROUS 4.9 mg/dL (2.5-4.9); POTASSIUM 4.2 mmol/L (3.5-5.1)
[2017-03-07 08:00] VITALS: BP 118/60
[2017-03-07 12:00] VITALS: BP 114/79
[2017-03-07 16:00] VITALS: BP 111/64
[2017-03-08] VITALS: BP 130/76
[2017-03-08 07:18] LABS: ALBUMIN 2.5 gm/dl (3.1-4.5); CREATININE 6.83 mg/dL (0.55-1.02); PHOSPHOROUS 5.1 mg/dL (2.5-4.9); POTASSIUM 4.9 mmol/L (3.5-5.1)
[2017-03-08 07:43] VITALS: BP 145/81
[2017-03-08 12:00] VITALS: BP 138/82
[2017-03-08 16:00] VITALS: BP 137/83
[2017-03-08 20:00] VITALS: BP 121/74
[2017-03-09] VITALS: BP 141/82
[2017-03-09 05:47] LABS: ALBUMIN 2.6 gm/dl (3.1-4.5); CREATININE 7.07 mg/dL (0.55-1.02); PHOSPHOROUS 5.9 mg/dL (2.5-4.9); POTASSIUM 4.6 mmol/L (3.5-5.1)
[2017-03-09 06:03] LABS: BASO % 0.4 % (0.0-1.0); EOS # 0.5 10*3/uL (0.0-0.4); EOS % 6.3 % (1.0-4.0); HEMATOCRIT 27.7 % (37.0-47.0); HEMOGLOBIN 8.4 g/dl (12.0-16.0); LYMPH # 0.9 10*3/uL (1.3-4.4); LYMPH % 10.6 % (27.0-41.0); MEAN CELL VOLUME 91.4 fl (81.0-99.0); MEAN CORPUSCULAR HGB 27.7 pg (27.0-31.0); MEAN CORPUSCULAR HGB CONC 30.3 g/dl (33.0-37.0); MEAN PLATELET VOLUME 10.5 fl (9.6-12.3); MONO # 0.6 10*3/uL (0.1-1.0); MONO % 6.8 % (3.0-9.0); NEUT # 6.4 10*3/uL (2.3-7.9); NEUT % 75.5 % (47.0-73.0); PLATELET COUNT AUTOMATED 231 10*3/uL (130-400); RED BLOOD COUNT 3.03 10*6/uL (4.10-5.10); RED CELL DISTRI WIDTH 13.2 % (0-14.5); WHITE BLOOD COUNT 8.4 10*3/uL (4.8-10.8)
[2017-03-09 08:00] VITALS: BP 142/92
[2017-03-09 12:00] VITALS: BP 136/98
[2017-03-09 16:00] VITALS: BP 153/92
[2017-03-09 20:00] VITALS: BP 120/73
[2017-03-10] VITALS: BP 166/90
[2017-03-10 07:37] LABS: ALBUMIN 2.7 gm/dl (3.1-4.5); CREATININE 6.98 mg/dL (0.55-1.02); PHOSPHOROUS 5.9 mg/dL (2.5-4.9); POTASSIUM 4.5 mmol/L (3.5-5.1)
[2017-03-10 08:00] VITALS: BP 151/81
[2017-03-10 12:00] VITALS: BP 152/87
[2017-03-10 16:00] VITALS: BP 155/79
[2017-03-10 20:00] VITALS: BP 155/84
[2017-03-11] VITALS: BP 138/83
[2017-03-11 07:29] LABS: ALBUMIN 2.7 gm/dl (3.1-4.5); CREATININE 6.81 mg/dL (0.55-1.02); POTASSIUM 4.5 mmol/L (3.5-5.1)
[2017-03-11 07:30] LABS: PHOSPHOROUS 5.8 mg/dL (2.5-4.9)
[2017-03-11 08:00] VITALS: BP 168/82
[2017-03-11 12:00] VITALS: BP 153/88
[2017-03-11 16:00] VITALS: BP 159/83
[2017-03-11 20:00] VITALS: BP 172/89
[2017-03-12] VITALS: BP 172/81
[2017-03-12 06:41] LABS: BASO % 0.7 % (0.0-1.0); EOS # 0.6 10*3/uL (0.0-0.4); EOS % 9.1 % (1.0-4.0); HEMATOCRIT 26.9 % (37.0-47.0); HEMOGLOBIN 8.4 g/dl (12.0-16.0); LYMPH # 1.2 10*3/uL (1.3-4.4); LYMPH % 19.1 % (27.0-41.0); MEAN CELL VOLUME 88.8 fl (81.0-99.0); MEAN CORPUSCULAR HGB 27.7 pg (27.0-31.0); MEAN CORPUSCULAR HGB CONC 31.2 g/dl (33.0-37.0); MEAN PLATELET VOLUME 10.6 fl (9.6-12.3); MONO # 0.5 10*3/uL (0.1-1.0); MONO % 7.6 % (3.0-9.0); NEUT # 3.8 10*3/uL (2.3-7.9); NEUT % 63.2 % (47.0-73.0); PLATELET COUNT AUTOMATED 225 10*3/uL (130-400); RED BLOOD COUNT 3.03 10*6/uL (4.10-5.10); RED CELL DISTRI WIDTH 13.2 % (0-14.5)
[2017-03-12 07:12] LABS: ALBUMIN 2.8 gm/dl (3.1-4.5); CREATININE 6.7 mg/dL (0.55-1.02); PHOSPHOROUS 5.4 mg/dL (2.5-4.9); POTASSIUM 3.9 mmol/L (3.5-5.1)
[2017-03-12 08:00] VITALS: BP 176/98
[2017-03-12 12:00] VITALS: BP 178/92
[2017-03-12 16:00] VITALS: BP 145/70
[2017-03-12 20:00] VITALS: BP 164/96
[2017-03-13] VITALS: BP 151/62
[2017-03-13 08:00] VITALS: BP 168/94
[2017-03-13 08:00] LABS: CREATININE 6.22 mg/dL (0.55-1.02); PHOSPHOROUS 4.6 mg/dL (2.5-4.9); POTASSIUM 3.6 mmol/L (3.5-5.1)
[2017-03-13 12:00] VITALS: BP 174/102
[2017-03-13 16:00] VITALS: BP 146/82
[2017-03-13 20:00] VITALS: BP 131/76
[2017-03-14] VITALS: BP 147/85
[2017-03-14 08:00] VITALS: BP 142/76
[2017-03-14 08:25] LABS: ALBUMIN 3.2 gm/dl (3.1-4.5); CREATININE 5.33 mg/dL (0.55-1.02); PHOSPHOROUS 4.7 mg/dL (2.5-4.9); POTASSIUM 3.4 mmol/L (3.5-5.1)
[2017-03-14 12:00] VITALS: BP 154/65
[2017-03-14] MEDS ORDERED: KLOR-CON M2020 ME1 PO (14:00)
[2017-03-14] MEDS ORDERED: AMLODIPINE BESYL5 MG PO (14:00)
[2017-03-14] MEDS ORDERED: DOXYCYCLINE100 M3 PO (14:00)
[2017-03-14] MEDS ORDERED: VITAMIN D-32000 UNI1 PO (14:00)
== END 2017-03-14 16:10 | disposition home or self-care (01) | DRG 919 ==
LOC: ED 08:41 → 4E 11:40 → EDHOLD 11:40 → 4E 11:43
PROVIDERS: Emergency Medicine; Internal Medicine; Internal Medicine Nephrology; Registered Nurse; Student in an Organized Health Care Education/Training Program
DX: L76.34 Postprocedural seroma of skin and subcutaneous tissue following other procedure (principal); A41.9 Sepsis, unspecified organism; N17.0 Acute kidney failure with tubular necrosis; E43 Unspecified severe protein-calorie malnutrition; I95.9 Hypotension, unspecified; E87.8 Other disorders of electrolyte and fluid balance, not elsewhere classified; N18.3 Chronic kidney disease, stage 3 (moderate); E83.42 Hypomagnesemia; E83.41 Hypermagnesemia; L03.311 Cellulitis of abdominal wall; E86.0 Dehydration; G89.29 Other chronic pain; J45.909 Unspecified asthma, uncomplicated; K21.9 Gastro-esophageal reflux disease without esophagitis; D64.9 Anemia, unspecified; D47.3 Essential (hemorrhagic) thrombocythemia; E66.09 Other obesity due to excess calories; Z68.33 Body mass index [BMI] 33.0-33.9, adult; K29.70 Gastritis, unspecified, without bleeding; E89.0 Postprocedural hypothyroidism; E78.5 Hyperlipidemia, unspecified; G43.909 Migraine, unspecified, not intractable, without status migrainosus; F32.9 Major depressive disorder, single episode, unspecified; M48.00 Spinal stenosis, site unspecified; M51.36 Other intervertebral disc degeneration, lumbar region; I12.9 Hypertensive chronic kidney disease with stage 1 through stage 4 chronic kidney disease, or unspecified chronic kidney disease; Y83.6 Removal of other organ (partial) (total) as the cause of abnormal reaction of the patient, or of later complication, without mention of misadventure at the time of the procedure; R73.9 Hyperglycemia, unspecified; B95.8 Unspecified staphylococcus as the cause of diseases classified elsewhere; Z79.899 Other long term (current) drug therapy; Z85.42 Personal history of malignant neoplasm of other parts of uterus; Z90.49 Acquired absence of other specified parts of digestive tract; Z98.1 Arthrodesis status; Z98.891 History of uterine scar from previous surgery; Z90.711 Acquired absence of uterus with remaining cervical stump; Z85.820 Personal history of malignant melanoma of skin; Z85.850 Personal history of malignant neoplasm of thyroid; Z82.49 Family history of ischemic heart disease and other diseases of the circulatory system; Z84.1 Family history of disorders of kidney and ureter; Y92.89 Other specified places as the place of occurrence of the external cause

== ENCOUNTER → 2017-08-21 | Outpatient (CLI) | payer OTHER ==
[~2017-08-21] MED LIST changes: +AMLODIPINE BESYL5 MG PO; +DOXYCYCLINE100 M3 PO; +KLOR-CON M2020 ME1 PO; +MOTRIN 600 MG E4 TAB PO; +SYNTHROID25 MCG PO; +Synthroid,Lev200 MCG PO; +TRINTELLIX10 MG PO; +TYLENOL EXTRA500 MG PO; +VITAMIN D-32000 UNI1 PO; +ZANTAC 300300 MG PO; +ZYRTEC10 MG PO
[2017-08-21 11:24] LABS: BILIRUBIN NEGATIVE (NEGATIVE); BLOOD NEGATIVE (NEGATIVE); CLARITY SL CLOUDY (CLEAR); COLOR YELLOW (YELLOW); GLUCOSE NEGATIVE (NEGATIVE); KETONE NEGATIVE (NEGATIVE); LEUKO ESTERASE TRACE (NEGATIVE); NITRITE NEGATIVE (NEGATIVE); UROBILINOGEN 0.2 E.U./dl (0.2-1.0)
[2017-08-21 11:29] LABS: BASO % 0.6 % (0.0-1.0); EOS # 0.2 10*3/uL (0.0-0.4); EOS % 3.4 % (1.0-4.0); HEMATOCRIT 36.6 % (37.0-47.0); HEMOGLOBIN 11.8 g/dl (12.0-16.0); LYMPH # 1.2 10*3/uL (1.3-4.4); LYMPH % 24.9 % (27.0-41.0); MEAN CORPUSCULAR HGB 28.4 pg (27.0-31.0); MEAN CORPUSCULAR HGB CONC 32.2 g/dl (33.0-37.0); MEAN PLATELET VOLUME 10.4 fl (9.6-12.3); MONO # 0.4 10*3/uL (0.1-1.0); MONO % 7.4 % (3.0-9.0); NEUT # 3.2 10*3/uL (2.3-7.9); NEUT % 63.5 % (47.0-73.0); PLATELET COUNT AUTOMATED 250 10*3/uL (130-400); RED BLOOD COUNT 4.16 10*6/uL (4.10-5.10); RED CELL DISTRI WIDTH 13.6 % (0-14.5)
[2017-08-21 11:35] LABS: BACTERIA TRACE
[2017-08-21 11:36] LABS: RBC 0-2 rbc/hpf (0-2)
[2017-08-21 12:16] LABS: ALBUMIN 4.2 gm/dl (3.1-4.5); CREATININE 1.21 mg/dL (0.55-1.02); POTASSIUM 3.8 mmol/L (3.5-5.1)
[2017-08-21 12:54] LABS: VITAMIN D, 25-HYDROXY 23.6 ng/mL (30-100)
== END | disposition home or self-care (01) ==
LOC: LAB 10:31
PROVIDERS: Internal Medicine Nephrology
DX: N18.3 Chronic kidney disease, stage 3 (moderate) (principal); N17.9 Acute kidney failure, unspecified

== ENCOUNTER 2017-08-23 11:56 | Emergency (ER) | payer OTHER ==
[~2017-08-23] VITALS: Ht 172.7 cm; Wt 95.3 kg
[2017-08-23 11:58] VITALS: BP 108/59
== END 2017-08-23 14:06 | disposition home or self-care (01) ==
LOC: ED 11:56
DX: S16.1XXA Strain of muscle, fascia and tendon at neck level, initial encounter (principal); M25.551 Pain in right hip; M25.552 Pain in left hip; Z79.899 Other long term (current) drug therapy; W18.09XA Striking against other object with subsequent fall, initial encounter; Y93.89 Activity, other specified; Y92.89 Other specified places as the place of occurrence of the external cause; Y99.8 Other external cause status

== ENCOUNTER 2018-04-13 12:04 | Emergency (ER) | payer OTHER ==
[~2018-04-13] VITALS: Ht 172.7 cm; Wt 104.3 kg
--- NOTE | ~2018-04-13 | EKG ---
[place], [place] ELECTROCARDIOGRAM REPORT NAME: EMILY CAMARA UNIT #: [id number] ROOM: DOCTOR: ERASTO DRAFT REPORT BIRTHDATE: [birth year] [facility] Test Date: 2018-04-13 Test Time: 12:20:09 Pat Name: EMILY CAMARA Department: Room: Gender: F Lunchroom Supervisor: : 1965 Requested By: ZEKE DONG Order Number: [id number] Reading MD: Measurements Intervals [place] Rate: 110 P: 45 OK: 134 QRS: -6 QRSD: 84 T: 192 QT: 390 QTc: 528 Interpretive Statements Sinus tachycardia LVH with secondary repolarization abnormality Prolonged QT interval Baseline wander in lead(s) V6 Compared to ECG 11/10/2017 13:07:57 Early repolarization now present Sinus rhythm no longer present T-wave abnormality no longer present CM:EKGRPT:ELECTROCARDIOGRAM REPORT [id number] ZEKE MAURER DRAFT REPORT ZEKE DONG M.D.
--- NOTE | ~2018-04-13 | EKG ---
[place], [place] ELECTROCARDIOGRAM REPORT NAME: EMILY CAMARA UNIT #: [id number] ROOM: DOCTOR: ERASTO DRAFT REPORT BIRTHDATE: [birth year] [facility] Test Date: 2018-04-13 Test Time: 14:54:36 Pat Name: EMILY CAMARA Department: Room: Gender: F Labor Specialist: : 1965 Requested By: ZEKE DONG Order Number: [id number] Reading MD: Measurements Intervals [place] Rate: 85 P: 62 MN: 138 QRS: -2 QRSD: 80 T: 16 QT: 426 QTc: 507 Interpretive Statements Sinus rhythm Abnormal R-wave progression, early transition Left ventricular hypertrophy Borderline abnrm T, anterolateral leads Borderline prolonged QT interval Compared to ECG 11/10/2017 13:07:57 T-wave abnormality no longer present CM:EKGRPT:ELECTROCARDIOGRAM REPORT 1454 [id number] ZEKE MAURER DRAFT REPORT ZEKE DONG M.D.
[~2018-04-13 12:04] MED LIST changes: +PERCOCET 7.5-31 EACH PO; -SYNTHROID25 MCG PO; +Synthroid,Levo50 MCG PO; +TIZANIDINE HCL2 MG PO; -TRAZODONE100 MG PO; +TRAZODONE150 MG PO; +VITAMIN D50000 UNIT PO
[2018-04-13 12:36] LABS: BASO % 0.5 % (0.0-1.0); EOS # 0.1 10*3/uL (0.0-0.4); EOS % 1.1 % (1.0-4.0); HEMOGLOBIN 12.7 g/dl (12.0-16.0); LYMPH # 1.6 10*3/uL (1.3-4.4); MEAN CELL VOLUME 97.7 fl (81.0-99.0); MEAN CORPUSCULAR HGB 29.5 pg (27.0-31.0); MEAN CORPUSCULAR HGB CONC 30.2 g/dl (33.0-37.0); MEAN PLATELET VOLUME 9.4 fl (9.6-12.3); MONO # 0.6 10*3/uL (0.1-1.0); MONO % 7.5 % (3.0-9.0); NEUT % 68.5 % (47.0-73.0); PLATELET COUNT AUTOMATED 268 10*3/uL (130-400); RED CELL DISTRI WIDTH 14.3 % (0-14.5); WHITE BLOOD COUNT 7.3 10*3/uL (4.8-10.8)
[2018-04-13 12:45] LABS: ACT PARTIAL THROMBO TIME 24.3 SECONDS (20.8-31.5)
[2018-04-13 13:06] LABS: ALBUMIN 4.4 gm/dl (3.1-4.5); ALKALINE PHOSPHATASE 76 U/L (45-117); BUN 22 mg/dl (7-24); CHLORIDE 106 mmol/L (98-107); CREATININE 1.49 mg/dL (0.55-1.02); SGOT/AST 26 IU/L (3-35); SGPT/ALT 30 U/L (12-78); SODIUM 142 mmol/L (136-145); TOTAL PROTEIN 7.9 gm/dL (6.4-8.2)
[2018-04-13 13:11] LABS: TROPONIN I < 0.015 ng/ml (<0.045)
[2018-04-13 14:19] LABS: BILIRUBIN NEGATIVE (NEGATIVE); BLOOD NEGATIVE (NEGATIVE); CLARITY CLEAR (CLEAR); COLOR YELLOW (YELLOW); GLUCOSE NEGATIVE (NEGATIVE); KETONE NEGATIVE (NEGATIVE); LEUKO ESTERASE NEGATIVE (NEGATIVE); NITRITE POSITIVE (NEGATIVE); UROBILINOGEN 0.2 E.U./dl (0.2-1.0)
[2018-04-13 14:26] LABS: URINE AMPHETAMINES < 1000 (1000ng/ml); URINE BARBITURATES < 200 (200ng/ml); URINE BENZODIAZEPINES < 200 (200ng/ml); URINE CANNABINOIDS (THC) < 50 (50ng/ml); URINE COCAINE < 300 (300ng/ml); URINE METHADONE < 300 (300ng/ml); URINE OPIATES > 300 (300ng/ml)
[2018-04-13 14:27] LABS: URINE PHENCYCLIDINE < 25 (25ng/ml)
[2018-04-13 14:28] VITALS: BP 131/89
[2018-04-13 14:33] LABS: HYALINE CAST 0-2
[2018-04-13 14:34] LABS: BACTERIA 1+; MUCOUS 2+
[2018-04-13] MEDS ORDERED: ZOFRAN4 MG PO (15:14)
[2018-04-15] MEDS ORDERED: PHENERGAN25 M3 PO (16:49)
[2018-04-15] MEDS ORDERED: TRAZODONE100 MG PO (20:24)
[2018-09-27] MEDS ORDERED: PREDNISONE50 MG PO (19:20)
== END 2018-04-13 15:17 | disposition home or self-care (01) ==
LOC: ED 12:04
PROVIDERS: Emergency Medicine; Student in an Organized Health Care Education/Training Program
DX: K52.9 Noninfective gastroenteritis and colitis, unspecified (principal); J45.909 Unspecified asthma, uncomplicated; G89.29 Other chronic pain; K21.9 Gastro-esophageal reflux disease without esophagitis; E78.5 Hyperlipidemia, unspecified; E03.9 Hypothyroidism, unspecified; E66.9 Obesity, unspecified; N18.3 Chronic kidney disease, stage 3 (moderate); Z79.899 Other long term (current) drug therapy

== ENCOUNTER 2018-05-08 13:20 | Emergency (ER) | payer OTHER ==
[~2018-05-08] VITALS: Ht 172.7 cm; Wt 99.8 kg
[~2018-05-08 13:20] MED LIST changes: +PHENERGAN25 M3 PO; +TRAZODONE100 MG PO
[2018-05-08 13:23] VITALS: BP 122/88
[2018-05-08] MEDS ORDERED: PREDNISONE20 M1 PO (15:39)
[2018-05-08] MEDS ORDERED: TESSALON PERLE100 M1 PO (15:39)
[2018-05-08] MEDS ORDERED: PROVENTIL HFA6.7 GM INH (15:39)
[2018-09-27] MEDS ORDERED: PREDNISONE50 MG PO (19:20)
== END 2018-05-08 15:51 | disposition home or self-care (01) ==
LOC: ED 13:20
DX: J45.909 Unspecified asthma, uncomplicated (principal); Z79.899 Other long term (current) drug therapy

== ENCOUNTER 2018-05-10 15:21 | Emergency (ER) | payer OTHER ==
[~2018-05-10] VITALS: Ht 172.7 cm; Wt 99.8 kg
[~2018-05-10 15:21] MED LIST changes: +PREDNISONE20 M1 PO; +PROVENTIL HFA6.7 GM INH; +TESSALON PERLE100 M1 PO
[2018-05-10 15:24] VITALS: BP 130/83
[2018-05-10] MEDS ORDERED: ZITHROMAX250 MG PO (18:54)
[2018-09-27] MEDS ORDERED: PREDNISONE50 MG PO (19:20)
== END 2018-05-10 19:30 | disposition home or self-care (01) ==
LOC: ED 15:21
DX: J02.9 Acute pharyngitis, unspecified (principal); J45.909 Unspecified asthma, uncomplicated; G89.29 Other chronic pain; K21.9 Gastro-esophageal reflux disease without esophagitis; E78.5 Hyperlipidemia, unspecified; G43.909 Migraine, unspecified, not intractable, without status migrainosus; E03.9 Hypothyroidism, unspecified; E66.9 Obesity, unspecified; N18.3 Chronic kidney disease, stage 3 (moderate); Z79.899 Other long term (current) drug therapy; Z90.49 Acquired absence of other specified parts of digestive tract; Z90.710 Acquired absence of both cervix and uterus

== ENCOUNTER 2018-06-10 08:59 | Emergency (ER) | payer OTHER ==
[~2018-06-10] VITALS: Ht 172.7 cm; Wt 99.8 kg
--- NOTE | ~2018-06-10 | EKG ---
[place], [place] ELECTROCARDIOGRAM REPORT NAME: EMILY CAMARA UNIT #: [id number] ROOM: DOCTOR: EPIPHANY DRAFT REPORT BIRTHDATE: [birth year] [facility] Test Date: 2018-06-10 Test Time: 09:49:58 Pat Name: EMILY CAMARA Department: Room: Gender: F Raw Material Planner: Fela Angulo : 1965 Requested By: RELL ALBA Order Number: [id number] Reading MD: Cory Arechiga MD Measurements Intervals [place] Rate: 100 P: 48 MI: 139 QRS: -3 QRSD: 89 T: 13 QT: 357 QTc: 461 Interpretive Statements Sinus tachycardia Low voltage, precordial leads Abnormal R-wave progression, early transition Left ventricular hypertrophy Borderline T abnormalities, anterior leads Compared to ECG 05/05/2018 19:47:31 Low QRS voltage now present T-wave abnormality now present Sinus rhythm no longer present Electronically Signed On 06-11-2018 6:54:49 PDT by Cory Arechiga MD CM:EKGRPT:ELECTROCARDIOGRAM REPORT [id number] RELL ALBA EPIPHANY DRAFT REPORT RELL ALBA
[~2018-06-10 08:59] MED LIST changes: +ZITHROMAX250 MG PO
[2018-06-10 09:01] VITALS: BP 154/72
[2018-06-10 09:43] LABS: BASO % 0.2 % (0.0-1.0); EOS # 0.1 10*3/uL (0.0-0.4); EOS % 1.1 % (1.0-4.0); HEMATOCRIT 36.6 % (37.0-47.0); HEMOGLOBIN 11.5 g/dl (12.0-16.0); LYMPH # 0.8 10*3/uL (1.3-4.4); LYMPH % 7.1 % (27.0-41.0); MEAN CELL VOLUME 92.4 fl (81.0-99.0); MEAN CORPUSCULAR HGB CONC 31.4 g/dl (33.0-37.0); MEAN PLATELET VOLUME 9.5 fl (9.6-12.3); MONO # 0.6 10*3/uL (0.1-1.0); MONO % 5.5 % (3.0-9.0); NEUT # 9.9 10*3/uL (2.3-7.9); NEUT % 85.6 % (47.0-73.0); PLATELET COUNT AUTOMATED 283 10*3/uL (130-400); RED BLOOD COUNT 3.96 10*6/uL (4.10-5.10); RED CELL DISTRI WIDTH 13.7 % (0-14.5); WHITE BLOOD COUNT 11.6 10*3/uL (4.8-10.8)
[2018-06-10 09:43] LABS: BILIRUBIN NEGATIVE (NEGATIVE); BLOOD NEGATIVE (NEGATIVE); CLARITY CLEAR (CLEAR); COLOR YELLOW (YELLOW); GLUCOSE NEGATIVE (NEGATIVE); KETONE 1+ (NEGATIVE); LEUKO ESTERASE NEGATIVE (NEGATIVE); NITRITE NEGATIVE (NEGATIVE); UROBILINOGEN 0.2 E.U./dl (0.2-1.0)
[2018-06-10 10:02] LABS: ALBUMIN 3.5 gm/dl (3.1-4.5); ALKALINE PHOSPHATASE 119 U/L (45-117); BUN 18 mg/dl (7-24); CHLORIDE 107 mmol/L (98-107); CREATININE 1.29 mg/dL (0.55-1.02); LIPASE 94 U/L (73-393); POTASSIUM 3.7 mmol/L (3.5-5.1); SGOT/AST 51 IU/L (3-35); SGPT/ALT 60 U/L (12-78); SODIUM 139 mmol/L (136-145); TOTAL PROTEIN 7.5 gm/dL (6.4-8.2); TROPONIN I < 0.015 ng/ml (<0.045)
[2018-09-27] MEDS ORDERED: PREDNISONE50 MG PO (19:20)
== END 2018-06-10 11:39 | disposition home or self-care (01) ==
LOC: ED 08:59
PROVIDERS: Nurse Practitioner Family
DX: B27.90 Infectious mononucleosis, unspecified without complication (principal); R19.7 Diarrhea, unspecified; R11.2 Nausea with vomiting, unspecified; R39.198 Other difficulties with micturition; R05 Cough; R06.02 Shortness of breath; Z79.899 Other long term (current) drug therapy

== ENCOUNTER → 2018-07-27 | Outpatient (CLI) | payer MEDICARE, MEDICAID ==
[~2018-07-27] MED LIST changes: +PREDNISONE50 MG PO
== END | disposition home or self-care (01) ==
LOC: RAD 16:27
DX: H53.8 Other visual disturbances (principal); R51 Headache

== ENCOUNTER → 2018-07-30 | Outpatient (CLI) | payer MEDICARE, MEDICAID | END | disposition home or self-care (01) | LOC: CT 15:49 | DX: S09.90XA Unspecified injury of head, initial encounter (principal); H53.8 Other visual disturbances; X58.XXXA Exposure to other specified factors, initial encounter; Y93.89 Activity, other specified; Y92.89 Other specified places as the place of occurrence of the external cause; Y99.8 Other external cause status ==

== ENCOUNTER 2018-12-13 21:46 | Emergency (ER) | payer MEDICARE, MEDICAID ==
[~2018-12-13] VITALS: Ht 172.7 cm; Wt 104.3 kg
[2018-12-14 00:30] VITALS: BP 178/94
== END 2018-12-14 00:45 | disposition home or self-care (01) ==
LOC: ED 21:46
DX: S93.402A Sprain of unspecified ligament of left ankle, initial encounter (principal); M79.671 Pain in right foot; J45.909 Unspecified asthma, uncomplicated; K21.9 Gastro-esophageal reflux disease without esophagitis; Z79.899 Other long term (current) drug therapy; Z90.710 Acquired absence of both cervix and uterus; Z90.49 Acquired absence of other specified parts of digestive tract; W13.3XXA Fall through floor, initial encounter; Y93.89 Activity, other specified; Y92.89 Other specified places as the place of occurrence of the external cause; Y99.8 Other external cause status

== ENCOUNTER → 2018-12-28 | Outpatient (CLI) | payer MEDICARE, MEDICAID ==
[~2018-12-28] MED LIST changes: +SEPTDS PO
== END | disposition home or self-care (01) ==
LOC: RAD 15:26
DX: M25.572 Pain in left ankle and joints of left foot (principal); M25.472 Effusion, left ankle

== ENCOUNTER 2019-01-05 07:49 | Emergency (ER) | payer MEDICARE, MEDICAID ==
[~2019-01-05] VITALS: Ht 172.7 cm; Wt 104.3 kg
[~2019-01-05 07:49] MED LIST changes: -SEPTDS PO
[2019-01-05 09:19] LABS: BILIRUBIN 1+ (NEGATIVE); BLOOD 1+ (NEGATIVE); CLARITY SL CLOUDY (CLEAR); COLOR YELLOW (YELLOW); GLUCOSE NEGATIVE (NEGATIVE); KETONE 2+ (NEGATIVE); LEUKO ESTERASE TRACE (NEGATIVE); NITRITE POSITIVE (NEGATIVE); SPECIFIC GRAVITY >= 1.030 (1.005-1.030); UROBILINOGEN 0.2 E.U./dl (0.2-1.0)
[2019-01-05 09:28] LABS: BACTERIA 3+; WBC TNTC wbc/hpf (0-5)
[2019-01-05 10:49] VITALS: BP 137/89
[2019-01-05] MEDS ORDERED: SEPTDS PO (11:05)
[2019-01-05] MEDS ORDERED: PHENERGAN25 M3 PO (11:05)
== END 2019-01-05 11:35 | disposition home or self-care (01) ==
LOC: ED 07:49
PROVIDERS: Emergency Medicine
DX: K29.70 Gastritis, unspecified, without bleeding (principal); N39.0 Urinary tract infection, site not specified; E66.9 Obesity, unspecified; E03.9 Hypothyroidism, unspecified; G43.909 Migraine, unspecified, not intractable, without status migrainosus; E78.5 Hyperlipidemia, unspecified; K21.9 Gastro-esophageal reflux disease without esophagitis; J45.909 Unspecified asthma, uncomplicated; N18.3 Chronic kidney disease, stage 3 (moderate); G89.29 Other chronic pain; Z90.710 Acquired absence of both cervix and uterus; Z90.49 Acquired absence of other specified parts of digestive tract

== ENCOUNTER → 2019-03-15 | Outpatient (CLI) | payer MEDICARE, MEDICAID ==
[~2019-03-15] MED LIST changes: +ADVAIR 250/501 EA NAS; +BRIN10TA PO; +FLUTICASONE-SA1 EAC4 INH; +IMITREX5 M1 NAS; +MIRALAX17 GM PO; +PROAIR HFA8.5 GM INH; +PROMETHAZINE12.5 M3 PO; +ROZEREM8 MG PO; +SENOKOT8.6 MG PO; +SEPTDS PO; +TRAZODONE HYDR300 MG PO; +VITAMIN D32000 UNI1 PO; +VOLTAREN100 GM T; +ZANAFLEX4 M1 PO
== END | disposition home or self-care (01) ==
LOC: CT 09:49
DX: S93.409A Sprain of unspecified ligament of unspecified ankle, initial encounter (principal); X58.XXXD Exposure to other specified factors, subsequent encounter

== ENCOUNTER 2019-04-10 14:12 | Inpatient (IN) | payer MEDICARE, MEDICAID ==
[~2019-04-10] VITALS: Ht 170.1 cm; Wt 99.4 kg
[~2019-04-10 14:12] MED LIST changes: -ADVAIR 250/501 EA NAS; -BRIN10TA PO; -FLUTICASONE-SA1 EAC4 INH; -IMITREX5 M1 NAS; -MIRALAX17 GM PO; -PROAIR HFA8.5 GM INH; -PROMETHAZINE12.5 M3 PO; -ROZEREM8 MG PO; -SENOKOT8.6 MG PO; -TRAZODONE HYDR300 MG PO; -VITAMIN D32000 UNI1 PO; -VOLTAREN100 GM T; -ZANAFLEX4 M1 PO
[2019-04-10 14:18] VITALS: BP 122/68
[2019-04-10 15:18] LABS: BASO % 0.5 % (0.0-1.0); EOS # 0.5 10*3/uL (0.0-0.4); EOS % 5.6 % (1.0-4.0); HEMATOCRIT 37.5 % (37.0-47.0); HEMOGLOBIN 11.9 g/dl (12.0-16.0); LYMPH # 1.3 10*3/uL (1.3-4.4); LYMPH % 15.4 % (27.0-41.0); MEAN CELL VOLUME 96.4 fl (81.0-99.0); MEAN CORPUSCULAR HGB 30.6 pg (27.0-31.0); MEAN CORPUSCULAR HGB CONC 31.7 g/dl (33.0-37.0); MONO # 0.6 10*3/uL (0.1-1.0); MONO % 7.1 % (3.0-9.0); NEUT % 71.2 % (47.0-73.0); PLATELET COUNT AUTOMATED 304 10*3/uL (130-400); RED BLOOD COUNT 3.89 10*6/uL (4.10-5.10); RED CELL DISTRI WIDTH 12.7 % (0-14.5); WHITE BLOOD COUNT 8.4 10*3/uL (4.8-10.8)
[2019-04-10 15:32] LABS: ACT PARTIAL THROMBO TIME 29.9 SECONDS (20.0-32.1); INTERNATIONAL NORM RATIO 0.9 (2.0-3.5)
[2019-04-10 15:33] LABS: ALBUMIN 3.7 gm/dl (3.1-4.5); ALKALINE PHOSPHATASE 108 U/L (45-117); BUN 17 mg/dl (7-24); CHLORIDE 104 mmol/L (98-107); CREATININE 1.27 mg/dL (0.55-1.02); LIPASE 79 U/L (73-393); POTASSIUM 4.6 mmol/L (3.5-5.1); SGOT/AST 221 IU/L (3-35); SGPT/ALT 78 U/L (12-78); SODIUM 136 mmol/L (136-145); TOTAL PROTEIN 6.9 gm/dL (6.4-8.2)
[2019-04-10 15:35] LABS: ACETAMINOPHEN (TYLENOL) < 5.0 ug/ml (10-30); TROPONIN I < 0.015 ng/ml (<0.045)
[2019-04-10 15:44] LABS: ETHYL ALCOHOL < 3.0 mg/dl (<3)
[2019-04-10 15:53] VITALS: BP 153/79
[2019-04-10 16:01] LABS: COLOR YELLOW (YELLOW)
[2019-04-10 16:02] LABS: BILIRUBIN NEGATIVE (NEGATIVE); BLOOD NEGATIVE (NEGATIVE); CLARITY CLEAR (CLEAR); GLUCOSE NEGATIVE (NEGATIVE); KETONE NEGATIVE (NEGATIVE); LEUKO ESTERASE NEGATIVE (NEGATIVE); NITRITE NEGATIVE (NEGATIVE); PH 7.5 (5.0-9.0); UROBILINOGEN 0.2 E.U./dl (0.2-1.0)
[2019-04-10 16:04] LABS: URINE AMPHETAMINES < 1000 (1000ng/ml); URINE BARBITURATES < 200 (200ng/ml); URINE BENZODIAZEPINES < 200 (200ng/ml); URINE CANNABINOIDS (THC) < 50 (50ng/ml); URINE COCAINE < 300 (300ng/ml); URINE METHADONE < 300 (300ng/ml); URINE OPIATES < 300 (300ng/ml)
[2019-04-10 16:06] LABS: URINE PHENCYCLIDINE < 25 (25ng/ml)
[2019-04-10 16:07] LABS: RBC 0-2 rbc/hpf (0-2); WBC 0-2 wbc/hpf (0-5)
[2019-04-10 16:08] LABS: BACTERIA TRACE; EPITHELIAL CELLS 0-2
[2019-04-10 17:14] VITALS: BP 139/80
[2019-04-10] MEDS ORDERED: PROVENTIL HFA6.7 GM INH (17:23)
[2019-04-10] MEDS ORDERED: PROAIR HFA8.5 GM INH (17:23)
[2019-04-10] MEDS ORDERED: PROMETHAZINE12.5 M3 PO (17:25)
[2019-04-10] MEDS ORDERED: ZANAFLEX4 M1 PO (17:26)
[2019-04-10] MEDS ORDERED: TRAZODONE HYDR300 MG PO (17:27)
[2019-04-10] MEDS ORDERED: TRINTELLIX20 MG PO (17:28)
[2019-04-10] MEDS ORDERED: VOLTAREN100 GM T (17:29)
[2019-04-10] MEDS ORDERED: FLUTICASONE-SA1 EAC4 INH (17:29)
[2019-04-10] MEDS ORDERED: SENOKOT8.6 MG PO (17:30)
[2019-04-10] MEDS ORDERED: MIRALAX17 GM PO (17:30)
[2019-04-10] MEDS ORDERED: IMITREX5 M1 NAS (17:31)
[2019-04-10] MEDS ORDERED: VITAMIN D32000 UNI1 PO (17:32)
[2019-04-10 20:00] VITALS: BP 98/60
[2019-04-11] VITALS: BP 84/51; BP 892/51; BP 92/51
[2019-04-11 06:12] LABS: BASO % 0.4 % (0.0-1.0); EOS # 0.3 10*3/uL (0.0-0.4); EOS % 5.1 % (1.0-4.0); HEMATOCRIT 37.8 % (37.0-47.0); HEMOGLOBIN 11.9 g/dl (12.0-16.0); LYMPH # 1.6 10*3/uL (1.3-4.4); MEAN CELL VOLUME 97.7 fl (81.0-99.0); MEAN CORPUSCULAR HGB 30.7 pg (27.0-31.0); MEAN CORPUSCULAR HGB CONC 31.5 g/dl (33.0-37.0); MEAN PLATELET VOLUME 10.4 fl (9.6-12.3); MONO # 0.4 10*3/uL (0.1-1.0); MONO % 6.5 % (3.0-9.0); NEUT # 4.4 10*3/uL (2.3-7.9); NEUT % 64.7 % (47.0-73.0); PLATELET COUNT AUTOMATED 280 10*3/uL (130-400); RED BLOOD COUNT 3.87 10*6/uL (4.10-5.10); WHITE BLOOD COUNT 6.7 10*3/uL (4.8-10.8)
[2019-04-11 06:21] LABS: ACT PARTIAL THROMBO TIME 27.6 SECONDS (20.0-32.1); INTERNATIONAL NORM RATIO 0.9 (2.0-3.5)
[2019-04-11 06:26] LABS: CREATININE 1.25 mg/dL (0.55-1.02); FREE T4 1.19 ng/dl (0.76-1.46)
[2019-04-11 08:00] VITALS: BP 107/66
[2019-04-11] MEDS ORDERED: ADVAIR 250/501 EA NAS (10:34)
[2019-04-11 12:00] VITALS: BP 101/60
[2019-04-11 16:00] VITALS: BP 99/62
[2019-04-11 20:00] VITALS: BP 148/90
[2019-04-12] VITALS: BP 100/83
[2019-04-12 08:00] VITALS: BP 110/60; BP 124/72
[2019-04-12 08:10] VITALS: BP 110/60
[2019-04-12] MEDS ORDERED: ROZEREM8 MG PO (10:40)
[2019-04-12] MEDS ORDERED: BRIN10TA PO (10:40)
[2019-04-12] MEDS ORDERED: TRAZODONE150 MG PO ×2 (10:40→11:24)
== END 2019-04-12 12:45 | disposition home or self-care (01) | DRG 308 ==
LOC: ED 14:12 → EDHOLD 16:28 → 4E 16:28
PROVIDERS: Internal Medicine; Nurse Practitioner Family; ADMIT Emergency Medicine
DX: R00.1 Bradycardia, unspecified (principal); G93.41 Metabolic encephalopathy; F33.2 Major depressive disorder, recurrent severe without psychotic features; F41.9 Anxiety disorder, unspecified; E89.0 Postprocedural hypothyroidism; K21.9 Gastro-esophageal reflux disease without esophagitis; J45.909 Unspecified asthma, uncomplicated; G89.29 Other chronic pain; E78.5 Hyperlipidemia, unspecified; N18.3 Chronic kidney disease, stage 3 (moderate); G47.00 Insomnia, unspecified; M54.9 Dorsalgia, unspecified; R74.0 Nonspecific elevation of levels of transaminase and lactic acid dehydrogenase [LDH]; G43.909 Migraine, unspecified, not intractable, without status migrainosus; E55.9 Vitamin D deficiency, unspecified; Z90.49 Acquired absence of other specified parts of digestive tract; Z90.721 Acquired absence of ovaries, unilateral; Z90.710 Acquired absence of both cervix and uterus; Z98.1 Arthrodesis status; Z81.8 Family history of other mental and behavioral disorders; Z85.42 Personal history of malignant neoplasm of other parts of uterus; Z85.820 Personal history of malignant melanoma of skin; Z85.850 Personal history of malignant neoplasm of thyroid; Z82.49 Family history of ischemic heart disease and other diseases of the circulatory system; Z83.3 Family history of diabetes mellitus; Z79.899 Other long term (current) drug therapy

== ENCOUNTER → 2019-05-16 | Outpatient (CLI) | payer MEDICARE, MEDICAID ==
[~2019-05-16] MED LIST changes: +ADVAIR 250/501 EA NAS; +BRIN10TA PO; +FLUTICASONE-SA1 EAC4 INH; +IMITREX5 M1 NAS; +MIRALAX17 GM PO; +PROAIR HFA8.5 GM INH; +PROMETHAZINE12.5 M3 PO; +ROZEREM8 MG PO; +SENOKOT8.6 MG PO; +TRAZODONE HYDR300 MG PO; +VITAMIN D32000 UNI1 PO; +VOLTAREN100 GM T; +ZANAFLEX4 M1 PO
== END | disposition home or self-care (01) ==
LOC: NM 07:42
DX: K30 Functional dyspepsia (principal)

== ENCOUNTER → 2020-01-17 | Outpatient (CLI) | payer MEDICARE, MEDICAID | END | disposition home or self-care (01) | LOC: COVID19 14:39 | PROVIDERS: ATTEND Student in an Organized Health Care Education/Training Program | DX: U07.1 COVID-19 (principal) ==

== ENCOUNTER 2020-01-29 18:05 | Emergency (ER) | payer MEDICARE, MEDICAID ==
[~2020-01-29] VITALS: Ht 172.7 cm; Wt 99.8 kg
[2020-01-29 18:10] VITALS: BP 94/53
== END 2020-01-30 00:53 | disposition home or self-care (01) ==
LOC: ED 18:05
DX: S82.831A Other fracture of upper and lower end of right fibula, initial encounter for closed fracture (principal); S30.0XXA Contusion of lower back and pelvis, initial encounter; S80.02XA Contusion of left knee, initial encounter; Z79.899 Other long term (current) drug therapy; Z90.49 Acquired absence of other specified parts of digestive tract; Z90.710 Acquired absence of both cervix and uterus; W10.8XXA Fall (on) (from) other stairs and steps, initial encounter; Y93.89 Activity, other specified; Y92.098 Other place in other non-institutional residence as the place of occurrence of the external cause; Y99.8 Other external cause status

== ENCOUNTER 2020-03-11 07:04 | Emergency (ER) | payer MEDICARE, MEDICAID ==
[~2020-03-11] VITALS: Wt 99.8 kg
[2020-03-11 07:29] VITALS: BP 162/91
[2020-03-11] MEDS ORDERED: AUGMENTIN 875875 MG PO (07:40)
== END 2020-03-11 07:55 | disposition home or self-care (01) ==
LOC: ED 07:04
DX: L03.213 Periorbital cellulitis (principal); J45.909 Unspecified asthma, uncomplicated; K21.9 Gastro-esophageal reflux disease without esophagitis; E78.5 Hyperlipidemia, unspecified; Z88.1 Allergy status to other antibiotic agents; Z79.899 Other long term (current) drug therapy

== ENCOUNTER → 2020-07-20 | Outpatient (CLI) | payer OTHER ==
[~2020-07-20] MED LIST changes: +AUGMENTIN 875875 MG PO
== END | disposition home or self-care (01) ==
LOC: RAD 13:41
PROVIDERS: ATTEND Family Medicine
DX: R19.02 Left upper quadrant abdominal swelling, mass and lump (principal); Z90.49 Acquired absence of other specified parts of digestive tract

== ENCOUNTER → 2020-08-15 | Outpatient (CLI) | payer OTHER | END | disposition home or self-care (01) | LOC: CT 08-13 14:00 | PROVIDERS: ATTEND Family Medicine | DX: R19.02 Left upper quadrant abdominal swelling, mass and lump (principal); M48.061 Spinal stenosis, lumbar region without neurogenic claudication; M48.07 Spinal stenosis, lumbosacral region; Z90.49 Acquired absence of other specified parts of digestive tract ==

== ENCOUNTER → 2020-09-04 | Outpatient (CLI) | payer OTHER ==
[2020-09-04 12:33] LABS: BASO % 0.6 % (0.0-1.0); EOS # 0.1 10*3/uL (0.0-0.4); EOS % 2.2 % (1.0-4.0); HEMATOCRIT 38.1 % (37.0-47.0); LYMPH # 1.3 10*3/uL (1.3-4.4); LYMPH % 26.1 % (27.0-41.0); MEAN CELL VOLUME 90.5 fl (81.0-99.0); MEAN CORPUSCULAR HGB 28.7 pg (27.0-31.0); MEAN CORPUSCULAR HGB CONC 31.8 g/dl (33.0-37.0); MEAN PLATELET VOLUME 9.1 fl (9.6-12.3); MONO # 0.4 10*3/uL (0.1-1.0); MONO % 8.1 % (3.0-9.0); NEUT # 3.1 10*3/uL (2.3-7.9); NEUT % 62.6 % (47.0-73.0); PLATELET COUNT AUTOMATED 224 10*3/uL (130-400); RED BLOOD COUNT 4.21 10*6/uL (4.10-5.10); RED CELL DISTRI WIDTH 14.1 % (0-14.5)
[2020-09-04 12:39] LABS: BILIRUBIN Negative (Negative); BLOOD Negative (Negative); CLARITY Clear (Clear); COLOR Yellow (Yellow); GLUCOSE Negative (Negative); KETONE Negative (Negative); LEUKO ESTERASE Negative (Negative); NITRITE Negative (Negative); SPECIFIC GRAVITY 1.025 (1.001-1.030); UROBILINOGEN 0.2 E.U./dl (0.0-1.0)
[2020-09-04 12:47] LABS: ALBUMIN 4.1 gm/dl (3.1-4.5); BUN 21 mg/dl (7-24); CHLORIDE 105 mmol/L (98-107); CREATININE 0.97 mg/dL (0.55-1.02); POTASSIUM 3.8 mmol/L (3.5-5.1); SODIUM 140 mmol/L (136-145)
[2020-09-04 12:48] LABS: ALBUMIN 4.1 gm/dl (3.1-4.5); ALKALINE PHOSPHATASE 73 U/L (45-117); BUN 20 mg/dl (7-24); CHLORIDE 106 mmol/L (98-107); CHOLESTEROL 174 mg/dL (<200); CREATININE 0.96 mg/dL (0.55-1.02); LDL CHOLESTEROL 93 mg/dL (9-159); POTASSIUM 3.8 mmol/L (3.5-5.1); SGOT/AST 17 IU/L (3-35); SGPT/ALT 17 U/L (12-78); SODIUM 139 mmol/L (136-145); TOTAL PROTEIN 7.3 gm/dL (6.4-8.2); TRIGLYCERIDES 156 mg/dl (<150)
[2020-09-04 12:49] LABS: FREE T4 0.92 ng/dl (0.76-1.46)
[2020-09-04 13:32] LABS: PTH INTACT 54.1 pg/mL (18.5-88.0); VITAMIN D, 25-HYDROXY 35.6 ng/mL (30-100)
== END | disposition home or self-care (01) ==
LOC: LAB 12:05
PROVIDERS: Student in an Organized Health Care Education/Training Program; ATTEND Internal Medicine Nephrology
DX: N18.30 Chronic kidney disease, stage 3 unspecified (principal); R03.0 Elevated blood-pressure reading, without diagnosis of hypertension; E66.09 Other obesity due to excess calories; Z79.899 Other long term (current) drug therapy

== ENCOUNTER 2021-03-28 12:11 | Emergency (ER) | payer OTHER ==
[~2021-03-28] VITALS: Wt 104.3 kg
[2021-03-28 12:14] VITALS: BP 144/92
== END 2021-03-28 15:11 | disposition home or self-care (01) ==
LOC: ED 12:11
DX: S93.402A Sprain of unspecified ligament of left ankle, initial encounter (principal); Z88.1 Allergy status to other antibiotic agents; Z79.899 Other long term (current) drug therapy; Z90.89 Acquired absence of other organs; Z90.49 Acquired absence of other specified parts of digestive tract; Z98.890 Other specified postprocedural states; W01.0XXA Fall on same level from slipping, tripping and stumbling without subsequent striking against object, initial encounter; Y93.89 Activity, other specified; Y92.89 Other specified places as the place of occurrence of the external cause; Y99.8 Other external cause status

== ENCOUNTER 2021-06-30 11:16 | Emergency (ER) | payer OTHER ==
[~2021-06-30] VITALS: Wt 102.1 kg
[2021-06-30 11:27] VITALS: BP 163/88
[2021-06-30] MEDS ORDERED: OXYCODONE-ACET1 EACH PO (11:42)
[2021-06-30 12:04] LABS: BILIRUBIN Negative (Negative); BLOOD Negative (Negative); CLARITY Clear (Clear); COLOR Yellow (Yellow); GLUCOSE Negative (Negative); KETONE Negative (Negative); LEUKO ESTERASE Trace (Negative); NITRITE Negative (Negative); SPECIFIC GRAVITY 1.015 (1.001-1.030)
[2021-06-30 12:12] LABS: HEMATOCRIT 39.7 % (37.0-47.0); MEAN CELL VOLUME 88.8 fl (81.0-99.0); MEAN CORPUSCULAR HGB 29.1 pg (27.0-31.0); MEAN CORPUSCULAR HGB CONC 32.7 g/dl (33.0-37.0); MEAN PLATELET VOLUME 9.8 fl (9.6-12.3); PLATELET COUNT AUTOMATED 250 10*3/uL (130-400); RED BLOOD COUNT 4.47 10*6/uL (4.10-5.10); RED CELL DISTRI WIDTH 12.7 % (0-14.5); WHITE BLOOD COUNT 6.6 10*3/uL (4.8-10.8)
[2021-06-30 12:13] LABS: MANUAL DIFF REFLEX YES
[2021-06-30 12:29] LABS: BACTERIA TRACE
[2021-06-30 12:34] LABS: ALKALINE PHOSPHATASE 80 U/L (45-117); BUN 13 mg/dl (7-24); CHLORIDE 106 mmol/L (98-107); CREATININE 1.06 mg/dL (0.55-1.02); POTASSIUM 4.4 mmol/L (3.5-5.1); SGOT/AST 26 IU/L (3-35); SGPT/ALT 25 U/L (12-78); SODIUM 139 mmol/L (136-145); TOTAL PROTEIN 7.1 gm/dL (6.4-8.2)
[2021-06-30 12:43] LABS: BASOPHILS 1 % (0-1); PLATELET SUFFICIENCY NORMAL (NORMAL); TOTAL CELLS COUNTED 100 #CELLS
[2021-06-30] MEDS ORDERED: PREDNISONE20 M1 PO (13:40)
[2021-06-30] MEDS ORDERED: CYCLOBENZAPRINE5 M3 PO (13:40)
== END 2021-06-30 13:49 | disposition home or self-care (01) ==
LOC: ED 11:16
PROVIDERS: Physician Assistant
DX: R10.9 Unspecified abdominal pain (principal); Z88.1 Allergy status to other antibiotic agents; Z79.899 Other long term (current) drug therapy; Z90.49 Acquired absence of other specified parts of digestive tract; Z98.890 Other specified postprocedural states; Z90.710 Acquired absence of both cervix and uterus

== ENCOUNTER 2021-07-09 18:20 | Emergency (ER) | payer OTHER ==
[~2021-07-09 18:20] MED LIST changes: +OXYCODONE-ACET1 EACH PO
== END 2021-07-09 19:21 | disposition left against medical advice (07) ==
LOC: ED 18:20
DX: Z53.21 Procedure and treatment not carried out due to patient leaving prior to being seen by health care provider (principal)

== ENCOUNTER 2021-07-11 10:40 | Emergency (ER) | payer OTHER ==
[~2021-07-11] VITALS: Ht 172.7 cm; Wt 95.3 kg
[2021-07-11 12:21] VITALS: BP 122/80
[2021-07-11] MEDS ORDERED: IBU800 M1 PO (18:14)
== END 2021-07-11 18:34 | disposition home or self-care (01) ==
LOC: ED 10:40
DX: M54.32 Sciatica, left side (principal); M54.31 Sciatica, right side; M51.36 Other intervertebral disc degeneration, lumbar region

== ENCOUNTER 2021-10-20 18:52 | Emergency (ER) | payer OTHER ==
[~2021-10-20] VITALS: Ht 172.7 cm; Wt 93.0 kg
[~2021-10-20 18:52] MED LIST changes: +IBU800 M1 PO
[2021-10-20 19:50] LABS: BASO % 0.5 % (0.0-1.0); EOS # 0.8 10*3/uL (0.0-0.4); EOS % 8.9 % (1.0-4.0); HEMATOCRIT 42.5 % (37.0-47.0); LYMPH # 0.9 10*3/uL (1.3-4.4); LYMPH % 10.9 % (27.0-41.0); MEAN CELL VOLUME 87.6 fl (81.0-99.0); MEAN CORPUSCULAR HGB 28.2 pg (27.0-31.0); MEAN CORPUSCULAR HGB CONC 32.2 g/dl (33.0-37.0); MEAN PLATELET VOLUME 8.9 fl (9.6-12.3); MONO # 0.6 10*3/uL (0.1-1.0); MONO % 6.4 % (3.0-9.0); NEUT # 6.3 10*3/uL (2.3-7.9); NEUT % 73.1 % (47.0-73.0); PLATELET COUNT AUTOMATED 354 10*3/uL (130-400); RED BLOOD COUNT 4.85 10*6/uL (4.10-5.10); RED CELL DISTRI WIDTH 13.3 % (0-14.5); WHITE BLOOD COUNT 8.6 10*3/uL (4.8-10.8)
[2021-10-20 20:08] LABS: CREATININE 1.78 mg/dL (0.55-1.02); POTASSIUM 4.5 mmol/L (3.5-5.1); TOTAL PROTEIN 7.4 gm/dL (6.4-8.2)
[2021-10-20 21:15] VITALS: BP 91/62
[2021-10-24] MEDS ORDERED: HYDROXYZINE PAM50 MG PO (11:59)
[2021-10-24] MEDS ORDERED: SYMPROIC0.2 MG PO (12:00)
[2021-10-24] MEDS ORDERED: MINIPRESS2 M1 PO (12:01)
[2021-10-24] MEDS ORDERED: FLUOXETINE HCL40 MG PO (12:03)
[2021-10-24] MEDS ORDERED: ONDANSETRON HYDR4 M1 PO (12:05)
[2021-10-24] MEDS ORDERED: TRAZODONE100 MG PO (12:05)
[2021-10-25] MEDS ORDERED: LEVOFLOXACIN750 M2 PO
[2021-10-25] MEDS ORDERED: DALVANCE500 MG IV
== END 2021-10-20 21:58 | disposition left against medical advice (07) ==
LOC: ED 18:52
PROVIDERS: Emergency Medicine
DX: R11.2 Nausea with vomiting, unspecified (principal); R10.9 Unspecified abdominal pain; R19.7 Diarrhea, unspecified; Z88.1 Allergy status to other antibiotic agents; Z79.899 Other long term (current) drug therapy; Z90.49 Acquired absence of other specified parts of digestive tract; Z98.890 Other specified postprocedural states; Z90.710 Acquired absence of both cervix and uterus

== ENCOUNTER 2021-10-21 10:58 | Emergency (ER) | payer OTHER ==
[~2021-10-21] VITALS: Wt 95.3 kg
[2021-10-21 10:59] VITALS: BP 110/60
[2021-10-21 11:17] LABS: BASO % 0.6 % (0.0-1.0); EOS # 0.7 10*3/uL (0.0-0.4); EOS % 14.1 % (1.0-4.0); HEMATOCRIT 40.9 % (37.0-47.0); LYMPH # 1.4 10*3/uL (1.3-4.4); LYMPH % 28.8 % (27.0-41.0); MEAN CELL VOLUME 87.8 fl (81.0-99.0); MEAN CORPUSCULAR HGB 27.9 pg (27.0-31.0); MEAN CORPUSCULAR HGB CONC 31.8 g/dl (33.0-37.0); MONO # 0.3 10*3/uL (0.1-1.0); MONO % 7.1 % (3.0-9.0); NEUT # 2.3 10*3/uL (2.3-7.9); PLATELET COUNT AUTOMATED 313 10*3/uL (130-400); RED BLOOD COUNT 4.66 10*6/uL (4.10-5.10); RED CELL DISTRI WIDTH 13.3 % (0-14.5); WHITE BLOOD COUNT 4.8 10*3/uL (4.8-10.8)
[2021-10-21 11:29] LABS: ACT PARTIAL THROMBO TIME 31.4 SECONDS (20.0-32.1)
[2021-10-21 11:33] LABS: CREATININE 1.48 mg/dL (0.55-1.02); TOTAL PROTEIN 7.2 gm/dL (6.4-8.2)
[2021-10-21 13:27] LABS: BILIRUBIN Negative (Negative); BLOOD Negative (Negative); CLARITY Clear (Clear); COLOR Yellow (Yellow); GLUCOSE Negative (Negative); KETONE Negative (Negative); LEUKO ESTERASE 1+ (Negative); NITRITE Negative (Negative); SPECIFIC GRAVITY 1.015 (1.001-1.030); UROBILINOGEN 0.2 E.U./dl (0.0-1.0)
[2021-10-21 13:46] LABS: BACTERIA TRACE; HYALINE CAST 31-40; MUCOUS 1+; RBC 0-2 rbc/hpf (0-2)
[2021-10-24] MEDS ORDERED: HYDROXYZINE PAM50 MG PO (11:59)
[2021-10-24] MEDS ORDERED: SYMPROIC0.2 MG PO (12:00)
[2021-10-24] MEDS ORDERED: MINIPRESS2 M1 PO (12:01)
[2021-10-24] MEDS ORDERED: FLUOXETINE HCL40 MG PO (12:03)
[2021-10-24] MEDS ORDERED: TRAZODONE100 MG PO (12:05)
[2021-10-24] MEDS ORDERED: ONDANSETRON HYDR4 M1 PO (12:05)
[2021-10-25] MEDS ORDERED: DALVANCE500 MG IV
[2021-10-25] MEDS ORDERED: LEVOFLOXACIN750 M2 PO
== END 2021-10-21 15:25 | disposition left against medical advice (07) ==
LOC: ED 10:58
PROVIDERS: Emergency Medicine
DX: R55 Syncope and collapse (principal); E86.0 Dehydration; R19.7 Diarrhea, unspecified; R11.10 Vomiting, unspecified; Z88.1 Allergy status to other antibiotic agents; Z79.899 Other long term (current) drug therapy; Z90.49 Acquired absence of other specified parts of digestive tract; Z98.890 Other specified postprocedural states; Z90.710 Acquired absence of both cervix and uterus

== ENCOUNTER 2021-11-03 00:29 | Emergency (ER) | payer OTHER ==
[~2021-11-03] VITALS: Ht 172.7 cm; Wt 95.3 kg
[~2021-11-03 00:29] MED LIST changes: +CUBICIN RF500 MG IV; +DALVANCE500 MG IV; +FLUOXETINE HCL40 MG PO; +HYDROXYZINE PAM50 MG PO; +LEVOFLOXACIN750 M2 PO; +MINIPRESS2 M1 PO; +ONDANSETRON HYDR4 M1 PO; +SYMPROIC0.2 MG PO
[2021-11-03 00:45] VITALS: BP 134/76
[2021-11-03 02:12] LABS: BASO # 0.1 10*3/uL (0.0-0.1); BASO % 0.6 % (0.0-1.0); EOS # 0.5 10*3/uL (0.0-0.4); EOS % 6.1 % (1.0-4.0); HEMATOCRIT 36.9 % (37.0-47.0); LYMPH % 25.1 % (27.0-41.0); MEAN CELL VOLUME 87.4 fl (81.0-99.0); MEAN CORPUSCULAR HGB 28.2 pg (27.0-31.0); MEAN CORPUSCULAR HGB CONC 32.2 g/dl (33.0-37.0); MEAN PLATELET VOLUME 9.3 fl (9.6-12.3); MONO # 0.6 10*3/uL (0.1-1.0); MONO % 7.4 % (3.0-9.0); NEUT # 4.8 10*3/uL (2.3-7.9); NEUT % 60.4 % (47.0-73.0); PLATELET COUNT AUTOMATED 243 10*3/uL (130-400); RED BLOOD COUNT 4.22 10*6/uL (4.10-5.10); RED CELL DISTRI WIDTH 13.6 % (0-14.5); WHITE BLOOD COUNT 7.9 10*3/uL (4.8-10.8)
[2021-11-03 02:28] LABS: CREATININE 1.24 mg/dL (0.55-1.02); POTASSIUM 3.8 mmol/L (3.5-5.1)
== END 2021-11-03 04:00 | disposition home or self-care (01) ==
LOC: ED 00:29
PROVIDERS: Emergency Medicine
DX: M79.662 Pain in left lower leg (principal); G43.909 Migraine, unspecified, not intractable, without status migrainosus; E78.5 Hyperlipidemia, unspecified; E03.9 Hypothyroidism, unspecified; K21.9 Gastro-esophageal reflux disease without esophagitis; J45.909 Unspecified asthma, uncomplicated; Z98.890 Other specified postprocedural states; Z90.49 Acquired absence of other specified parts of digestive tract; Z90.89 Acquired absence of other organs

== ENCOUNTER → 2021-11-04 | Outpatient (CLI) | payer OTHER | END | disposition home or self-care (01) | LOC: RESCLI 02:54 | PROVIDERS: ATTEND Internal Medicine | DX: J30.2 Other seasonal allergic rhinitis (principal); D50.9 Iron deficiency anemia, unspecified; B37.0 Candidal stomatitis; R11.0 Nausea; L30.4 Erythema intertrigo; G43.009 Migraine without aura, not intractable, without status migrainosus; F41.9 Anxiety disorder, unspecified; E03.8 Other specified hypothyroidism; G89.21 Chronic pain due to trauma; K22.70 Barrett's esophagus without dysplasia; N39.0 Urinary tract infection, site not specified; F32.9 Major depressive disorder, single episode, unspecified; K31.84 Gastroparesis; R78.81 Bacteremia; Z98.890 Other specified postprocedural states; Z79.899 Other long term (current) drug therapy ==

== ENCOUNTER → 2021-11-06 | Outpatient (CLI) | payer OTHER | END | disposition home or self-care (01) | LOC: LAB 14:46 | PROVIDERS: ATTEND Student in an Organized Health Care Education/Training Program | DX: R78.81 Bacteremia (principal); N39.0 Urinary tract infection, site not specified; Z79.2 Long term (current) use of antibiotics ==

== ENCOUNTER → 2021-11-22 | Outpatient (CLI) | payer OTHER ==
[2021-11-22 15:20] LABS: BUN 9 mg/dl (7-24); CHLORIDE 105 mmol/L (98-107); POTASSIUM 3.8 mmol/L (3.5-5.1); SODIUM 143 mmol/L (136-145)
[2021-11-22 15:21] LABS: CPK 232 U/L (26-192)
== END ==
LOC: LAB 14:07
PROVIDERS: ATTEND Surgery
DX: E03.8 Other specified hypothyroidism (principal); D50.9 Iron deficiency anemia, unspecified; Z79.2 Long term (current) use of antibiotics

== ENCOUNTER 2021-11-27 14:11 | Emergency (ER) | payer OTHER ==
[~2021-11-27] VITALS: Wt 95.3 kg
[2021-11-27 14:19] VITALS: BP 128/69
[2021-11-27 14:48] LABS: BASO # 0.1 10*3/uL (0.0-0.1); BASO % 0.9 % (0.0-1.0); EOS # 0.4 10*3/uL (0.0-0.4); EOS % 7.7 % (1.0-4.0); LYMPH # 1.6 10*3/uL (1.3-4.4); LYMPH % 28.2 % (27.0-41.0); MEAN CELL VOLUME 87.8 fl (81.0-99.0); MEAN CORPUSCULAR HGB 27.9 pg (27.0-31.0); MEAN CORPUSCULAR HGB CONC 31.8 g/dl (33.0-37.0); MEAN PLATELET VOLUME 9.4 fl (9.6-12.3); MONO # 0.4 10*3/uL (0.1-1.0); MONO % 7.9 % (3.0-9.0); NEUT # 3.1 10*3/uL (2.3-7.9); NEUT % 54.9 % (47.0-73.0); PLATELET COUNT AUTOMATED 323 10*3/uL (130-400); RED BLOOD COUNT 4.33 10*6/uL (4.10-5.10); RED CELL DISTRI WIDTH 12.9 % (0-14.5); WHITE BLOOD COUNT 5.6 10*3/uL (4.8-10.8)
[2021-11-27 15:01] LABS: ACT PARTIAL THROMBO TIME 26.6 SECONDS (20.0-32.1)
[2021-11-27 15:11] LABS: ALKALINE PHOSPHATASE 72 U/L (45-117); BUN 22 mg/dl (7-24); CHLORIDE 105 mmol/L (98-107); CREATININE 1.04 mg/dL (0.55-1.02); POTASSIUM 3.5 mmol/L (3.5-5.1); SGOT/AST 18 IU/L (3-35); SGPT/ALT 25 U/L (12-78); SODIUM 140 mmol/L (136-145); TOTAL PROTEIN 7.3 gm/dL (6.4-8.2)
[2021-11-27 15:13] LABS: LIPASE 132 U/L (73-393)
== END 2021-11-27 17:47 | disposition home or self-care (01) ==
LOC: ED 14:11
PROVIDERS: Emergency Medicine
DX: R07.89 Other chest pain (principal); R05.9 Cough, unspecified; K30 Functional dyspepsia; Z88.1 Allergy status to other antibiotic agents; Z79.2 Long term (current) use of antibiotics; Z79.899 Other long term (current) drug therapy; Z90.49 Acquired absence of other specified parts of digestive tract; Z98.890 Other specified postprocedural states; Z90.710 Acquired absence of both cervix and uterus

== ENCOUNTER → 2021-11-29 | Outpatient (CLI) | payer OTHER | END | disposition home or self-care (01) | LOC: LAB 13:55 | PROVIDERS: ATTEND Student in an Organized Health Care Education/Training Program | DX: R78.81 Bacteremia (principal) ==

== ENCOUNTER → 2021-12-04 | Outpatient (CLI) | payer OTHER | END | disposition home or self-care (01) | LOC: RESCLI 00:39 | PROVIDERS: ATTEND Student in an Organized Health Care Education/Training Program | DX: J44.9 Chronic obstructive pulmonary disease, unspecified (principal); J30.2 Other seasonal allergic rhinitis; G89.21 Chronic pain due to trauma; F32.9 Major depressive disorder, single episode, unspecified; F41.9 Anxiety disorder, unspecified; K22.70 Barrett's esophagus without dysplasia; E03.8 Other specified hypothyroidism; G43.009 Migraine without aura, not intractable, without status migrainosus; N39.0 Urinary tract infection, site not specified; R78.81 Bacteremia; R11.0 Nausea; Z90.49 Acquired absence of other specified parts of digestive tract; Z90.711 Acquired absence of uterus with remaining cervical stump; Z98.890 Other specified postprocedural states; Z79.899 Other long term (current) drug therapy ==

== ENCOUNTER 2022-02-03 12:29 | Emergency (ER) | payer OTHER ==
[~2022-02-03] VITALS: Ht 172.7 cm; Wt 99.8 kg
[2022-02-03 12:36] VITALS: BP 141/78
[2022-02-03 13:16] LABS: BASO # 0.1 10*3/uL (0.0-0.1); BASO % 0.7 % (0.0-1.0); EOS # 0.7 10*3/uL (0.0-0.4); EOS % 9.9 % (1.0-4.0); HEMATOCRIT 36.4 % (37.0-47.0); LYMPH # 1.7 10*3/uL (1.3-4.4); LYMPH % 24.9 % (27.0-41.0); MEAN CELL VOLUME 86.5 fl (81.0-99.0); MEAN CORPUSCULAR HGB 27.8 pg (27.0-31.0); MEAN CORPUSCULAR HGB CONC 32.1 g/dl (33.0-37.0); MEAN PLATELET VOLUME 9.3 fl (9.6-12.3); MONO # 0.4 10*3/uL (0.1-1.0); MONO % 5.8 % (3.0-9.0); NEUT % 58.1 % (47.0-73.0); PLATELET COUNT AUTOMATED 234 10*3/uL (130-400); RED BLOOD COUNT 4.21 10*6/uL (4.10-5.10); RED CELL DISTRI WIDTH 15.3 % (0-14.5)
[2022-02-03 13:31] LABS: CREATININE 1.14 mg/dL (0.55-1.02); POTASSIUM 4.4 mmol/L (3.4-5.1); TOTAL PROTEIN 7.3 gm/dL (6.0-8.0)
[2022-02-03] MEDS ORDERED: ALBUTEROL2.5 MG/0.5 INH (15:41)
== END 2022-02-03 15:45 | disposition home or self-care (01) ==
LOC: ED 12:29
PROVIDERS: Nurse Practitioner Family
DX: B34.9 Viral infection, unspecified (principal); Z88.1 Allergy status to other antibiotic agents; Z90.49 Acquired absence of other specified parts of digestive tract; Z90.710 Acquired absence of both cervix and uterus; Z90.711 Acquired absence of uterus with remaining cervical stump; Z98.890 Other specified postprocedural states; Z20.822 Contact with and (suspected) exposure to COVID-19

== ENCOUNTER 2022-02-04 18:48 | Emergency (ER) | payer OTHER ==
[~2022-02-04] VITALS: Wt 99.8 kg
[~2022-02-04 18:48] MED LIST changes: +ALBUTEROL2.5 MG/0.5 INH
[2022-02-04 18:54] VITALS: BP 141/69
== END 2022-02-04 23:09 | disposition left against medical advice (07) ==
LOC: ED 18:48
DX: J11.1 Influenza due to unidentified influenza virus with other respiratory manifestations (principal); Z53.21 Procedure and treatment not carried out due to patient leaving prior to being seen by health care provider

== ENCOUNTER 2022-02-10 17:53 | Emergency (ER) | payer OTHER ==
[~2022-02-10] VITALS: Wt 99.8 kg
[2022-02-10 18:00] VITALS: BP 156/91
[2022-02-10 18:54] LABS: BASO # 0.1 10*3/uL (0.0-0.1); BASO % 0.7 % (0.0-1.0); EOS # 0.3 10*3/uL (0.0-0.4); EOS % 4.4 % (1.0-4.0); HEMATOCRIT 39.3 % (37.0-47.0); MEAN CELL VOLUME 88.3 fl (81.0-99.0); MEAN CORPUSCULAR HGB 27.4 pg (27.0-31.0); MEAN PLATELET VOLUME 8.7 fl (9.6-12.3); MONO # 0.6 10*3/uL (0.1-1.0); MONO % 7.6 % (3.0-9.0); NEUT # 4.3 10*3/uL (2.3-7.9); NEUT % 59.6 % (47.0-73.0); PLATELET COUNT AUTOMATED 312 10*3/uL (130-400); RED BLOOD COUNT 4.45 10*6/uL (4.10-5.10); RED CELL DISTRI WIDTH 16.3 % (0-14.5); WHITE BLOOD COUNT 7.3 10*3/uL (4.8-10.8)
[2022-02-10 19:08] LABS: ALKALINE PHOSPHATASE 74 U/L (46-116); BUN 13 mg/dl (9-23); CHLORIDE 97 mmol/L (98-107); CREATININE 1.16 mg/dL (0.55-1.02); POTASSIUM 3.7 mmol/L (3.4-5.1); SGPT/ALT 11 U/L (10-49); TOTAL PROTEIN 7.1 gm/dL (6.0-8.0)
== END 2022-02-10 19:35 | disposition home or self-care (01) ==
LOC: ED 17:53
PROVIDERS: Nurse Practitioner Family
DX: R07.9 Chest pain, unspecified (principal); J45.909 Unspecified asthma, uncomplicated; N18.9 Chronic kidney disease, unspecified; Z88.1 Allergy status to other antibiotic agents; Z79.899 Other long term (current) drug therapy; Z90.49 Acquired absence of other specified parts of digestive tract; Z98.890 Other specified postprocedural states; Z90.89 Acquired absence of other organs

== ENCOUNTER 2022-03-09 12:09 | Emergency (ER) | payer OTHER ==
[~2022-03-09] VITALS: Ht 172.7 cm; Wt 99.8 kg
[2022-03-09 12:42] VITALS: BP 133/83
[2022-03-09 13:03] LABS: BASO # 0.1 10*3/uL (0.0-0.1); BASO % 0.7 % (0.0-1.0); EOS # 0.5 10*3/uL (0.0-0.4); EOS % 7.1 % (1.0-4.0); HEMATOCRIT 37.9 % (37.0-47.0); LYMPH # 1.7 10*3/uL (1.3-4.4); LYMPH % 24.3 % (27.0-41.0); MEAN CELL VOLUME 91.1 fl (81.0-99.0); MEAN CORPUSCULAR HGB 28.6 pg (27.0-31.0); MEAN CORPUSCULAR HGB CONC 31.4 g/dl (33.0-37.0); MEAN PLATELET VOLUME 9.2 fl (9.6-12.3); MONO # 0.5 10*3/uL (0.1-1.0); MONO % 7.5 % (3.0-9.0); NEUT # 4.1 10*3/uL (2.3-7.9); PLATELET COUNT AUTOMATED 280 10*3/uL (130-400); RED BLOOD COUNT 4.16 10*6/uL (4.10-5.10); RED CELL DISTRI WIDTH 15.3 % (0-14.5); WHITE BLOOD COUNT 6.8 10*3/uL (4.8-10.8)
[2022-03-09 13:24] LABS: ALKALINE PHOSPHATASE 79 U/L (46-116); BUN 21 mg/dl (9-23); CHLORIDE 101 mmol/L (98-107); POTASSIUM 4.1 mmol/L (3.4-5.1); SGPT/ALT 17 U/L (10-49); TOTAL PROTEIN 7.2 gm/dL (6.0-8.0)
[2022-03-09 13:26] LABS: INTERNATIONAL NORM RATIO 0.9 (2.0-3.5)
== END 2022-03-09 15:30 | disposition home or self-care (01) ==
LOC: ED 12:09
PROVIDERS: Physician Assistant
DX: R07.89 Other chest pain (principal); Z88.1 Allergy status to other antibiotic agents; Z90.49 Acquired absence of other specified parts of digestive tract; Z98.890 Other specified postprocedural states; Z90.89 Acquired absence of other organs; Z90.710 Acquired absence of both cervix and uterus; J45.909 Unspecified asthma, uncomplicated; K21.9 Gastro-esophageal reflux disease without esophagitis

== ENCOUNTER 2022-03-10 15:26 | Emergency (ER) | payer OTHER ==
[~2022-03-10] VITALS: Ht 172.7 cm; Wt 99.8 kg
[2022-03-10 16:40] VITALS: BP 145/70
== END 2022-03-10 20:06 | disposition home or self-care (01) ==
LOC: ED 15:26
DX: S39.012A Strain of muscle, fascia and tendon of lower back, initial encounter (principal); Z88.1 Allergy status to other antibiotic agents; Z90.89 Acquired absence of other organs; Z90.49 Acquired absence of other specified parts of digestive tract; Z98.890 Other specified postprocedural states; Z90.710 Acquired absence of both cervix and uterus; W10.9XXA Fall (on) (from) unspecified stairs and steps, initial encounter; Y93.89 Activity, other specified; Y92.89 Other specified places as the place of occurrence of the external cause; Y99.8 Other external cause status

== ENCOUNTER → 2022-05-15 | Outpatient (CLI) | payer OTHER | END | disposition home or self-care (01) | LOC: RAD 14:16 | PROVIDERS: ATTEND Family Medicine | DX: R05.9 Cough, unspecified (principal) ==

== ENCOUNTER 2022-06-29 18:47 | Emergency (ER) | payer OTHER ==
[~2022-06-29] VITALS: Ht 172.7 cm; Wt 99.8 kg
[2022-06-29 19:12] VITALS: BP 170/81
== END 2022-06-29 19:47 | disposition home or self-care (01) ==
LOC: ED 18:47
DX: Z77.098 Contact with and (suspected) exposure to other hazardous, chiefly nonmedicinal, chemicals (principal); F32.A Depression, unspecified; D64.9 Anemia, unspecified; J45.909 Unspecified asthma, uncomplicated; K21.9 Gastro-esophageal reflux disease without esophagitis; F41.9 Anxiety disorder, unspecified; Z88.1 Allergy status to other antibiotic agents; Z90.49 Acquired absence of other specified parts of digestive tract; Z90.710 Acquired absence of both cervix and uterus; Z90.711 Acquired absence of uterus with remaining cervical stump

== ENCOUNTER → 2022-07-11 | Outpatient (CLI) | payer OTHER ==
[2022-07-11 11:13] LABS: BASO # 0.1 10*3/uL (0.0-0.1); BASO % 0.8 % (0.0-1.0); EOS # 0.4 10*3/uL (0.0-0.4); EOS % 6.2 % (1.0-4.0); HEMATOCRIT 40.4 % (37.0-47.0); LYMPH # 1.4 10*3/uL (1.3-4.4); LYMPH % 21.5 % (27.0-41.0); MEAN CELL VOLUME 86.9 fl (81.0-99.0); MEAN CORPUSCULAR HGB 28.2 pg (27.0-31.0); MEAN CORPUSCULAR HGB CONC 32.4 g/dl (33.0-37.0); MEAN PLATELET VOLUME 9.5 fl (9.6-12.3); MONO # 0.4 10*3/uL (0.1-1.0); MONO % 5.5 % (3.0-9.0); NEUT # 4.3 10*3/uL (2.3-7.9); NEUT % 65.7 % (47.0-73.0); PLATELET COUNT AUTOMATED 268 10*3/uL (130-400); RED BLOOD COUNT 4.65 10*6/uL (4.10-5.10); RED CELL DISTRI WIDTH 14.3 % (0-14.5); WHITE BLOOD COUNT 6.6 10*3/uL (4.8-10.8)
[2022-07-11 11:21] LABS: BILIRUBIN Negative (Negative); BLOOD Negative (Negative); CLARITY Clear (Clear); COLOR Yellow (Yellow); GLUCOSE Negative (Negative); KETONE Negative (Negative); LEUKO ESTERASE Negative (Negative); NITRITE Negative (Negative); PH 5.5 (4.5-8.0); SPECIFIC GRAVITY 1.015 (1.001-1.030); UROBILINOGEN 0.2 E.U./dl (0.0-1.0)
[2022-07-11 11:28] LABS: URINE CREATININE RANDOM 132.11 mg/dL
[2022-07-11 11:34] LABS: BACTERIA TRACE; RBC 0-2 rbc/hpf (0-2); WBC 0-2 wbc/hpf (0-5)
[2022-07-11 11:41] LABS: POTASSIUM 3.9 mmol/L (3.4-5.1)
[2022-07-11 11:43] LABS: VITAMIN D, 25-HYDROXY 29.5 ng/mL (30-100)
== END | disposition home or self-care (01) ==
LOC: LAB 10:48
PROVIDERS: ATTEND Internal Medicine Nephrology
DX: N18.31 Chronic kidney disease, stage 3a (principal)

== ENCOUNTER 2022-07-13 23:28 | Emergency (ER) | payer OTHER ==
[~2022-07-13] VITALS: Ht 167.6 cm; Wt 99.8 kg
[2022-07-14 00:19] LABS: BASO % 0.5 % (0.0-1.0); EOS # 0.4 10*3/uL (0.0-0.4); EOS % 5.6 % (1.0-4.0); HEMATOCRIT 37.3 % (37.0-47.0); LYMPH # 2.2 10*3/uL (1.3-4.4); LYMPH % 28.3 % (27.0-41.0); MEAN CELL VOLUME 87.6 fl (81.0-99.0); MEAN CORPUSCULAR HGB 28.4 pg (27.0-31.0); MEAN CORPUSCULAR HGB CONC 32.4 g/dl (33.0-37.0); MEAN PLATELET VOLUME 9.4 fl (9.6-12.3); MONO # 0.5 10*3/uL (0.1-1.0); MONO % 6.8 % (3.0-9.0); NEUT # 4.5 10*3/uL (2.3-7.9); NEUT % 58.4 % (47.0-73.0); PLATELET COUNT AUTOMATED 249 10*3/uL (130-400); RED BLOOD COUNT 4.26 10*6/uL (4.10-5.10); RED CELL DISTRI WIDTH 14.4 % (0-14.5); WHITE BLOOD COUNT 7.7 10*3/uL (4.8-10.8)
[2022-07-14 00:39] LABS: POTASSIUM 3.5 mmol/L (3.4-5.1); TOTAL PROTEIN 6.5 gm/dL (6.0-8.0)
[2022-07-14 01:17] VITALS: BP 101/60
== END 2022-07-14 01:12 | disposition home or self-care (01) ==
LOC: ED 23:28
PROVIDERS: Internal Medicine
DX: K21.9 Gastro-esophageal reflux disease without esophagitis (principal); E83.42 Hypomagnesemia; N18.9 Chronic kidney disease, unspecified; F32.A Depression, unspecified; D64.9 Anemia, unspecified; J45.909 Unspecified asthma, uncomplicated; F41.9 Anxiety disorder, unspecified; Z88.1 Allergy status to other antibiotic agents; Z90.49 Acquired absence of other specified parts of digestive tract; Z98.890 Other specified postprocedural states; Z90.711 Acquired absence of uterus with remaining cervical stump

== ENCOUNTER → 2022-08-29 | Outpatient (CLI) | payer OTHER | END | disposition home or self-care (01) | LOC: RAD 16:52 | PROVIDERS: ATTEND Family Medicine | DX: S39.92XA Unspecified injury of lower back, initial encounter (principal); M47.816 Spondylosis without myelopathy or radiculopathy, lumbar region; X58.XXXA Exposure to other specified factors, initial encounter; Y93.89 Activity, other specified; Y92.89 Other specified places as the place of occurrence of the external cause; Y99.8 Other external cause status ==

== ENCOUNTER 2022-10-29 11:38 | Inpatient (IN) | payer MEDICARE, OTHER ==
[~2022-10-29] VITALS: Ht 172.7 cm; Wt 99.8 kg
[2022-10-29 11:52] VITALS: BP 152/83
[2022-10-29] MEDS ORDERED: REXULTI1 MG PO (12:13)
[2022-10-29 12:45] LABS: BASO % 0.7 % (0.0-1.0); EOS # 0.4 10*3/uL (0.0-0.4); EOS % 6.9 % (1.0-4.0); HEMATOCRIT 38.5 % (37.0-47.0); LYMPH # 1.4 10*3/uL (1.3-4.4); LYMPH % 22.8 % (27.0-41.0); MEAN CELL VOLUME 85.9 fl (81.0-99.0); MEAN CORPUSCULAR HGB 28.8 pg (27.0-31.0); MEAN CORPUSCULAR HGB CONC 33.5 g/dl (33.0-37.0); MEAN PLATELET VOLUME 9.2 fl (9.6-12.3); MONO # 0.4 10*3/uL (0.1-1.0); MONO % 6.7 % (3.0-9.0); NEUT # 3.7 10*3/uL (2.3-7.9); NEUT % 62.6 % (47.0-73.0); PLATELET COUNT AUTOMATED 225 10*3/uL (130-400); RED BLOOD COUNT 4.48 10*6/uL (4.10-5.10); WHITE BLOOD COUNT 5.9 10*3/uL (4.8-10.8)
[2022-10-29 13:06] LABS: ALKALINE PHOSPHATASE 83 U/L (46-116); BUN 15 mg/dl (9-23); CHLORIDE 105 mmol/L (98-107); LIPASE 38 U/L (12-53); POTASSIUM 3.6 mmol/L (3.4-5.1); SGPT/ALT 15 U/L (10-49); TOTAL PROTEIN 6.9 gm/dL (6.0-8.0)
[2022-10-29 13:15] LABS: ACT PARTIAL THROMBO TIME 26.8 SECONDS (20.0-32.1)
[2022-10-29] MEDS ORDERED: ZITHROMAX250 MG PO (17:28)
[2022-10-29] MEDS ORDERED: PREDNISONE50 MG PO (17:28)
[2022-10-29 18:04] VITALS: BP 127/78
== END 2022-10-29 17:30 | disposition home health service (06) | DRG 203 ==
LOC: ED 11:38 → EDHOLD 14:48
PROVIDERS: Emergency Medicine; ADMIT Internal Medicine; ATTEND Internal Medicine
DX: J45.901 Unspecified asthma with (acute) exacerbation (principal); F32.9 Major depressive disorder, single episode, unspecified; K21.9 Gastro-esophageal reflux disease without esophagitis; G89.29 Other chronic pain; M54.9 Dorsalgia, unspecified; N18.31 Chronic kidney disease, stage 3a; R07.89 Other chest pain; E78.5 Hyperlipidemia, unspecified; F32.A Depression, unspecified; M50.320 Other cervical disc degeneration, mid-cervical region, unspecified level; Z88.1 Allergy status to other antibiotic agents; Z90.49 Acquired absence of other specified parts of digestive tract; Z90.721 Acquired absence of ovaries, unilateral; Z90.710 Acquired absence of both cervix and uterus; Z82.49 Family history of ischemic heart disease and other diseases of the circulatory system; Z83.3 Family history of diabetes mellitus; Z85.850 Personal history of malignant neoplasm of thyroid; Z86.14 Personal history of Methicillin resistant Staphylococcus aureus infection; Z78.9 Other specified health status; Z85.42 Personal history of malignant neoplasm of other parts of uterus

== ENCOUNTER 2022-11-23 12:15 | Emergency (ER) | payer MEDICARE, OTHER ==
[~2022-11-23] VITALS: Ht 172.7 cm; Wt 97.5 kg
[~2022-11-23 12:15] MED LIST changes: +REXULTI1 MG PO
[2022-11-23 12:34] VITALS: BP 132/70
[2022-11-23 13:01] LABS: BASO # 0.1 10*3/uL (0.0-0.1); BASO % 0.9 % (0.0-1.0); EOS # 0.3 10*3/uL (0.0-0.4); HEMATOCRIT 37.8 % (37.0-47.0); LYMPH # 1.7 10*3/uL (1.3-4.4); LYMPH % 31.2 % (27.0-41.0); MEAN CELL VOLUME 87.3 fl (81.0-99.0); MEAN CORPUSCULAR HGB 28.6 pg (27.0-31.0); MEAN CORPUSCULAR HGB CONC 32.8 g/dl (33.0-37.0); MEAN PLATELET VOLUME 9.2 fl (9.6-12.3); MONO # 0.5 10*3/uL (0.1-1.0); MONO % 9.4 % (3.0-9.0); NEUT # 2.8 10*3/uL (2.3-7.9); NEUT % 51.9 % (47.0-73.0); PLATELET COUNT AUTOMATED 247 10*3/uL (130-400); RED BLOOD COUNT 4.33 10*6/uL (4.10-5.10); RED CELL DISTRI WIDTH 13.2 % (0-14.5); WHITE BLOOD COUNT 5.3 10*3/uL (4.8-10.8)
[2022-11-23 13:23] LABS: POTASSIUM 3.7 mmol/L (3.4-5.1); TOTAL PROTEIN 6.3 gm/dL (6.0-8.0)
[2022-11-23] MEDS ORDERED: PREDNISONE20 M1 PO (14:03)
== END 2022-11-23 14:27 | disposition home or self-care (01) ==
LOC: ED 12:15
PROVIDERS: Emergency Medicine
DX: J45.901 Unspecified asthma with (acute) exacerbation (principal); I12.9 Hypertensive chronic kidney disease with stage 1 through stage 4 chronic kidney disease, or unspecified chronic kidney disease; N18.9 Chronic kidney disease, unspecified; E78.5 Hyperlipidemia, unspecified; K21.9 Gastro-esophageal reflux disease without esophagitis; F32.A Depression, unspecified; D64.9 Anemia, unspecified; F41.9 Anxiety disorder, unspecified; Z88.8 Allergy status to other drugs, medicaments and biological substances; Z90.49 Acquired absence of other specified parts of digestive tract; Z98.890 Other specified postprocedural states; Z90.711 Acquired absence of uterus with remaining cervical stump

== ENCOUNTER 2022-12-01 16:42 | Emergency (ER) | payer MEDICARE, OTHER ==
[~2022-12-01] VITALS: Ht 172.7 cm; Wt 97.5 kg
[2022-12-01 16:55] VITALS: BP 128/87
[2022-12-01] MEDS ORDERED: SEPTDS PO (17:45)
[2022-12-01] MEDS ORDERED: CEPHALEXIN500 M1 PO (17:45)
== END 2022-12-01 17:45 | disposition home or self-care (01) ==
LOC: ED 16:42
DX: S40.862A Insect bite (nonvenomous) of left upper arm, initial encounter (principal); F32.A Depression, unspecified; D64.9 Anemia, unspecified; J45.909 Unspecified asthma, uncomplicated; K21.9 Gastro-esophageal reflux disease without esophagitis; F41.9 Anxiety disorder, unspecified; Z88.8 Allergy status to other drugs, medicaments and biological substances; Z90.49 Acquired absence of other specified parts of digestive tract; Z98.890 Other specified postprocedural states; Z90.710 Acquired absence of both cervix and uterus; W57.XXXA Bitten or stung by nonvenomous insect and other nonvenomous arthropods, initial encounter; Y93.89 Activity, other specified; Y92.89 Other specified places as the place of occurrence of the external cause; Y99.8 Other external cause status

== ENCOUNTER 2023-04-28 21:19 | Emergency (ER) | payer MEDICARE, OTHER ==
[~2023-04-28] VITALS: Ht 177.8 cm; Wt 99.8 kg
[~2023-04-28 21:19] MED LIST changes: +CEPHALEXIN500 M1 PO
[2023-04-28 22:37] LABS: BASO % 0.7 % (0.0-1.0); EOS # 0.4 10*3/uL (0.0-0.4); HEMATOCRIT 37.2 % (37.0-47.0); LYMPH # 1.9 10*3/uL (1.3-4.4); LYMPH % 30.6 % (27.0-41.0); MEAN CELL VOLUME 91.2 fl (81.0-99.0); MEAN CORPUSCULAR HGB 29.4 pg (27.0-31.0); MEAN CORPUSCULAR HGB CONC 32.3 g/dl (33.0-37.0); MEAN PLATELET VOLUME 9.4 fl (9.6-12.3); MONO # 0.5 10*3/uL (0.1-1.0); NEUT # 3.3 10*3/uL (2.3-7.9); NEUT % 53.4 % (47.0-73.0); PLATELET COUNT AUTOMATED 240 10*3/uL (130-400); RED BLOOD COUNT 4.08 10*6/uL (4.10-5.10); RED CELL DISTRI WIDTH 13.2 % (0-14.5); WHITE BLOOD COUNT 6.1 10*3/uL (4.8-10.8)
[2023-04-28 23:03] LABS: ALKALINE PHOSPHATASE 78 U/L (46-116); BUN 9 mg/dl (9-23); CHLORIDE 102 mmol/L (98-107); POTASSIUM 3.1 mmol/L (3.4-5.1); TOTAL PROTEIN 6.6 gm/dL (6.0-8.0)
[2023-04-28 23:04] LABS: SGPT/ALT < 7 U/L (5-49)
[2023-04-29 01:35] VITALS: BP 101/75
[2023-04-29] MEDS ORDERED: POTASSIUM CHLORIDE 20 MEQ TAB PO ONE (01:35)
== END 2023-04-29 02:02 | disposition home or self-care (01) ==
LOC: ED 21:19
PROVIDERS: Emergency Medicine
DX: R07.89 Other chest pain (principal); R03.0 Elevated blood-pressure reading, without diagnosis of hypertension; R79.9 Abnormal finding of blood chemistry, unspecified; E87.6 Hypokalemia; E03.9 Hypothyroidism, unspecified; J45.909 Unspecified asthma, uncomplicated; F32.A Depression, unspecified; K21.9 Gastro-esophageal reflux disease without esophagitis; E78.5 Hyperlipidemia, unspecified; G43.909 Migraine, unspecified, not intractable, without status migrainosus; N18.31 Chronic kidney disease, stage 3a; D64.9 Anemia, unspecified; F41.9 Anxiety disorder, unspecified; Z88.8 Allergy status to other drugs, medicaments and biological substances; Z90.49 Acquired absence of other specified parts of digestive tract; Z98.890 Other specified postprocedural states; Z90.711 Acquired absence of uterus with remaining cervical stump

== ENCOUNTER 2023-05-17 09:46 | Emergency (ER) | payer MEDICARE, OTHER ==
[~2023-05-17] VITALS: Ht 170.1 cm; Wt 99.8 kg
[2023-05-17] MEDS ORDERED: Albuterol Sulf/Ipratropium 3 ML VIAL NEB ONE ×2 (10:00→11:40)
[2023-05-17] MEDS ORDERED: MAGNESIUM SULFATE 50 ML IV ONE (10:20)
[2023-05-17] MEDS ORDERED: methylPREDNISolone sod succ 125 MG VIAL IV ONE (10:20)
[2023-05-17 11:00] VITALS: BP 127/77
[2023-05-17] MEDS ORDERED: PREDNISONE50 MG PO (12:16)
[2023-05-17] MEDS ORDERED: Ipratropium Brom3 ML INH (12:16)
== END 2023-05-17 16:01 | disposition home or self-care (01) ==
LOC: ED 09:46
DX: J45.901 Unspecified asthma with (acute) exacerbation (principal); F32.A Depression, unspecified; D64.9 Anemia, unspecified; K21.9 Gastro-esophageal reflux disease without esophagitis; F41.9 Anxiety disorder, unspecified; Z88.8 Allergy status to other drugs, medicaments and biological substances; Z90.49 Acquired absence of other specified parts of digestive tract; Z98.890 Other specified postprocedural states; Z90.711 Acquired absence of uterus with remaining cervical stump

== ENCOUNTER → 2023-07-23 | Outpatient (CLI) | payer OTHER ==
[~2023-07-23] MED LIST changes: +Ipratropium Brom3 ML INH
[2023-07-23 13:18] LABS: BASO % 0.7 % (0.0-1.0); BILIRUBIN Negative (Negative); BLOOD Negative (Negative); CLARITY Clear (Clear); COLOR Yellow (Yellow); EOS # 0.4 10*3/uL (0.0-0.4); EOS % 7.5 % (1.0-4.0); GLUCOSE Negative (Negative); HEMATOCRIT 39.2 % (37.0-47.0); KETONE Negative (Negative); LEUKO ESTERASE Trace (Negative); LYMPH # 1.2 10*3/uL (1.3-4.4); MEAN CELL VOLUME 88.9 fl (81.0-99.0); MEAN CORPUSCULAR HGB 28.8 pg (27.0-31.0); MEAN CORPUSCULAR HGB CONC 32.4 g/dl (33.0-37.0); MEAN PLATELET VOLUME 9.5 fl (9.6-12.3); MONO # 0.4 10*3/uL (0.1-1.0); MONO % 6.2 % (3.0-9.0); NEUT # 3.7 10*3/uL (2.3-7.9); NEUT % 64.3 % (47.0-73.0); NITRITE Negative (Negative); PLATELET COUNT AUTOMATED 260 10*3/uL (130-400); RED BLOOD COUNT 4.41 10*6/uL (4.10-5.10); RED CELL DISTRI WIDTH 12.5 % (0-14.5); UROBILINOGEN 0.2 E.U./dl (0.0-1.0); WHITE BLOOD COUNT 5.8 10*3/uL (4.8-10.8)
[2023-07-23 13:25] LABS: URINE CREATININE RANDOM 78.12 mg/dL
[2023-07-23 13:50] LABS: POTASSIUM 3.9 mmol/L (3.4-5.1)
[2023-07-23 13:51] LABS: BACTERIA 1+; MUCOUS 1+; RBC 0-2 rbc/hpf (0-2); YEAST TRACE
[2023-07-23 14:21] LABS: FREE T4 1.67 ng/dl (0.89-1.76)
== END | disposition home or self-care (01) ==
LOC: LAB 12:46
PROVIDERS: Student in an Organized Health Care Education/Training Program; ATTEND Internal Medicine Nephrology
DX: N18.30 Chronic kidney disease, stage 3 unspecified (principal); R73.03 Prediabetes; E03.9 Hypothyroidism, unspecified

== ENCOUNTER → 2023-09-21 | Outpatient (CLI) | payer OTHER ==
[~2023-09-21] MED LIST changes: +PERFLUTREN PROTEIN-A MICROSPHR 3 ML VIAL IV ONE; +Regadenoson 0.4 MG/5 ML SYR IV ONE; +Technetium Tc 99M Tetrofosmi 0.23 MG KIT IJ SCH
== END | disposition home or self-care (01) ==
LOC: CARD 01:46
PROVIDERS: ATTEND Family Medicine
DX: R07.9 Chest pain, unspecified (principal)

== ENCOUNTER 2024-01-20 12:26 | Emergency (ER) | payer MEDICARE ==
[~2024-01-20] VITALS: Ht 172.7 cm; Wt 99.8 kg
[~2024-01-20 12:26] MED LIST changes: -PERFLUTREN PROTEIN-A MICROSPHR 3 ML VIAL IV ONE; -Regadenoson 0.4 MG/5 ML SYR IV ONE; -Technetium Tc 99M Tetrofosmi 0.23 MG KIT IJ SCH
[2024-01-20 13:21] VITALS: BP 150/90
[2024-01-20] MEDS ORDERED: Sulfamethoxazole/Trimethopri 1 TAB TAB PO ONE (15:00)
[2024-01-20] MEDS ORDERED: SEPTDS PO (15:07)
== END 2024-01-20 15:20 | disposition home or self-care (01) ==
LOC: ED 12:26
DX: C44.90 Unspecified malignant neoplasm of skin, unspecified (principal); L08.9 Local infection of the skin and subcutaneous tissue, unspecified; Z88.1 Allergy status to other antibiotic agents; Z90.49 Acquired absence of other specified parts of digestive tract; Z98.890 Other specified postprocedural states; Z90.711 Acquired absence of uterus with remaining cervical stump

== ENCOUNTER 2024-03-13 15:32 | Emergency (ER) | payer MEDICARE ==
[~2024-03-13] VITALS: Ht 172.7 cm; Wt 95.3 kg
[2024-03-13 15:45] VITALS: BP 142/86
[2024-03-13] MEDS ORDERED: Lactated Ringer's Solution 1,000 ML IV SCH (16:20)
[2024-03-13 16:40] LABS: BASO % 0.6 % (0.0-1.0); EOS # 0.4 10*3/uL (0.0-0.4); EOS % 5.9 % (1.0-4.0); HEMATOCRIT 38.9 % (37.0-47.0); MEAN CELL VOLUME 91.7 fl (81.0-99.0); MEAN CORPUSCULAR HGB 29.7 pg (27.0-31.0); MEAN CORPUSCULAR HGB CONC 32.4 g/dl (33.0-37.0); MEAN PLATELET VOLUME 9.2 fl (9.6-12.3); MONO # 0.6 10*3/uL (0.1-1.0); MONO % 9.1 % (3.0-9.0); NEUT # 3.6 10*3/uL (2.3-7.9); NEUT % 56.2 % (47.0-73.0); PLATELET COUNT AUTOMATED 281 10*3/uL (130-400); RED BLOOD COUNT 4.24 10*6/uL (4.10-5.10); RED CELL DISTRI WIDTH 13.9 % (0-14.5); WHITE BLOOD COUNT 6.5 10*3/uL (4.8-10.8)
[2024-03-13 17:59] LABS: ALKALINE PHOSPHATASE 91 U/L (46-116); BUN 10 mg/dl (9-23); CHLORIDE 100 mmol/L (98-107); POTASSIUM 3.2 mmol/L (3.4-5.1); SGPT/ALT 26 U/L (5-49); TOTAL PROTEIN 6.8 gm/dL (6.0-8.0)
[2024-03-13] MEDS ORDERED: POTASSIUM CHLORIDE 20 MEQ TAB PO ONE (18:10)
== END 2024-03-13 18:40 | disposition home or self-care (01) ==
LOC: ED 15:32
PROVIDERS: Emergency Medicine
DX: U07.1 COVID-19 (principal); E87.6 Hypokalemia; N18.9 Chronic kidney disease, unspecified; R19.7 Diarrhea, unspecified; F32.A Depression, unspecified; D63.1 Anemia in chronic kidney disease; J45.909 Unspecified asthma, uncomplicated; K21.9 Gastro-esophageal reflux disease without esophagitis; F41.9 Anxiety disorder, unspecified; E86.0 Dehydration; Z88.1 Allergy status to other antibiotic agents; Z90.49 Acquired absence of other specified parts of digestive tract; Z98.890 Other specified postprocedural states; Z90.711 Acquired absence of uterus with remaining cervical stump

== ENCOUNTER → 2024-04-05 | Outpatient (CLI) | payer MEDICARE ==
[2024-04-05 16:40] LABS: FREE T4 1.61 ng/dl (0.89-1.76)
== END | disposition home or self-care (01) ==
LOC: LAB 15:29
PROVIDERS: Student in an Organized Health Care Education/Training Program; ATTEND Dermatology
DX: E03.9 Hypothyroidism, unspecified (principal)

== ENCOUNTER 2024-04-11 13:11 | Emergency (ER) | payer MEDICARE ==
[~2024-04-11] VITALS: Ht 172.7 cm; Wt 95.3 kg
[2024-04-11 13:27] VITALS: BP 176/72
[2024-04-11] MEDS ORDERED: Ondansetron Hydrochloride 4 MG/2 ML VIAL IV ONE (15:15)
[2024-04-11] MEDS ORDERED: SODIUM CHLORIDE 0.9% 1,000 ML IV ONE (15:15)
[2024-04-11 15:36] LABS: BASO # 0.1 10*3/uL (0.0-0.1); BASO % 0.6 % (0.0-1.0); EOS # 0.2 10*3/uL (0.0-0.4); EOS % 2.4 % (1.0-4.0); HEMATOCRIT 42.3 % (37.0-47.0); MEAN CELL VOLUME 90.2 fl (81.0-99.0); MEAN CORPUSCULAR HGB 29.6 pg (27.0-31.0); MEAN CORPUSCULAR HGB CONC 32.9 g/dl (33.0-37.0); MEAN PLATELET VOLUME 9.8 fl (9.6-12.3); MONO # 0.7 10*3/uL (0.1-1.0); MONO % 7.4 % (3.0-9.0); NEUT # 6.1 10*3/uL (2.3-7.9); NEUT % 69.1 % (47.0-73.0); PLATELET COUNT AUTOMATED 346 10*3/uL (130-400); RED BLOOD COUNT 4.69 10*6/uL (4.10-5.10); RED CELL DISTRI WIDTH 13.2 % (0-14.5); WHITE BLOOD COUNT 8.9 10*3/uL (4.8-10.8)
[2024-04-11 15:56] LABS: BILIRUBIN Negative (Negative); BLOOD Negative (Negative); CLARITY Clear (Clear); COLOR Yellow (Yellow); GLUCOSE Negative (Negative); KETONE Trace (Negative); LEUKO ESTERASE Trace (Negative); NITRITE Negative (Negative); PH 7.5 (4.5-8.0); SPECIFIC GRAVITY 1.025 (1.001-1.030)
[2024-04-11 16:00] LABS: POTASSIUM 3.3 mmol/L (3.4-5.1); TOTAL PROTEIN 7.3 gm/dL (6.0-8.0)
[2024-04-11] MEDS ORDERED: POTASSIUM CHLORIDE 20 MEQ TAB PO ONE (16:15)
[2024-04-11] MEDS ORDERED: MAGNESIUM SULFATE 50 ML IV ONE (16:15)
[2024-04-11 16:17] LABS: BACTERIA TRACE; EPITHELIAL CELLS 21-30; RBC 0-2 rbc/hpf (0-2); WBC 0-2 wbc/hpf (0-5)
[2024-04-11] MEDS ORDERED: Ondansetron4 MG PO (17:45)
[2024-04-11] MEDS ORDERED: Phenergan25 MG PO (18:16)
== END 2024-04-11 17:58 | disposition home or self-care (01) ==
LOC: ED 13:11
PROVIDERS: Nurse Practitioner Family
DX: U07.1 COVID-19 (principal); E87.6 Hypokalemia; E83.42 Hypomagnesemia; F32.A Depression, unspecified; K21.9 Gastro-esophageal reflux disease without esophagitis; J45.909 Unspecified asthma, uncomplicated; R11.2 Nausea with vomiting, unspecified; E03.9 Hypothyroidism, unspecified; G43.909 Migraine, unspecified, not intractable, without status migrainosus; E78.5 Hyperlipidemia, unspecified; N18.31 Chronic kidney disease, stage 3a; Z88.1 Allergy status to other antibiotic agents; Z90.49 Acquired absence of other specified parts of digestive tract; Z98.890 Other specified postprocedural states; Z90.711 Acquired absence of uterus with remaining cervical stump

== ENCOUNTER 2024-04-12 14:14 | Emergency (ER) | payer MEDICARE ==
[~2024-04-12] VITALS: Ht 172.7 cm; Wt 93.0 kg
[~2024-04-12 14:14] MED LIST changes: +Ondansetron4 MG PO; +Phenergan25 MG PO
[2024-04-12 14:26] VITALS: BP 144/69
[2024-04-12] MEDS ORDERED: SODIUM CHLORIDE 0.9% 1,000 ML IV ONE (14:35)
[2024-04-12] MEDS ORDERED: Metoclopramide Hydrochloride 10 MG/2 ML VIAL IV ONE (14:35)
[2024-04-12] MEDS ORDERED: diphenhydrAMINE hydrochloride 50 MG/ML VIAL IV ONE (14:35)
[2024-04-12 15:02] LABS: BASO % 0.4 % (0.0-1.0); EOS # 0.1 10*3/uL (0.0-0.4); EOS % 0.9 % (1.0-4.0); MEAN CELL VOLUME 89.2 fl (81.0-99.0); MEAN CORPUSCULAR HGB 29.5 pg (27.0-31.0); MEAN PLATELET VOLUME 9.6 fl (9.6-12.3); MONO # 0.7 10*3/uL (0.1-1.0); MONO % 6.6 % (3.0-9.0); NEUT % 78.4 % (47.0-73.0); PLATELET COUNT AUTOMATED 395 10*3/uL (130-400); RED BLOOD COUNT 4.82 10*6/uL (4.10-5.10); RED CELL DISTRI WIDTH 13.1 % (0-14.5); WHITE BLOOD COUNT 10.1 10*3/uL (4.8-10.8)
[2024-04-12 15:16] LABS: POTASSIUM 3.4 mmol/L (3.4-5.1)
[2024-04-12] MEDS ORDERED: Ondansetron Hydrochloride 4 MG/2 ML VIAL IV ONE (16:30)
[2024-04-12] MEDS ORDERED: Promethazine Hydrochloride 25 MG/ML VIAL IM ONE (17:50)
[2024-04-12] MEDS ORDERED: POTASSIUM CHLORIDE 20 MEQ TAB PO ONE (19:25)
== END 2024-04-12 19:50 | disposition home or self-care (01) ==
LOC: ED 14:14
PROVIDERS: Nurse Practitioner Family
DX: U07.1 COVID-19 (principal); R73.9 Hyperglycemia, unspecified; R11.2 Nausea with vomiting, unspecified; J45.909 Unspecified asthma, uncomplicated; F32.A Depression, unspecified; K21.9 Gastro-esophageal reflux disease without esophagitis; E03.9 Hypothyroidism, unspecified; G43.909 Migraine, unspecified, not intractable, without status migrainosus; E87.6 Hypokalemia; E83.42 Hypomagnesemia; D63.1 Anemia in chronic kidney disease; F41.9 Anxiety disorder, unspecified; N18.31 Chronic kidney disease, stage 3a; Z88.1 Allergy status to other antibiotic agents; Z90.49 Acquired absence of other specified parts of digestive tract; Z98.890 Other specified postprocedural states; Z90.711 Acquired absence of uterus with remaining cervical stump

== ENCOUNTER → 2024-08-01 | Outpatient (CLI) | payer MEDICARE ==
[2024-08-01 14:14] LABS: BASO % 0.6 % (0.0-1.0); EOS # 0.3 10*3/uL (0.0-0.4); EOS % 5.4 % (1.0-4.0); HEMATOCRIT 39.5 % (37.0-47.0); MEAN CELL VOLUME 92.7 fl (81.0-99.0); MEAN CORPUSCULAR HGB 29.3 pg (27.0-31.0); MEAN CORPUSCULAR HGB CONC 31.6 g/dl (33.0-37.0); MEAN PLATELET VOLUME 9.6 fl (9.6-12.3); MONO # 0.4 10*3/uL (0.1-1.0); MONO % 6.7 % (3.0-9.0); NEUT # 3.1 10*3/uL (2.3-7.9); NEUT % 58.5 % (47.0-73.0); PLATELET COUNT AUTOMATED 275 10*3/uL (130-400); RED BLOOD COUNT 4.26 10*6/uL (4.10-5.10); RED CELL DISTRI WIDTH 12.5 % (0-14.5); WHITE BLOOD COUNT 5.2 10*3/uL (4.8-10.8)
[2024-08-01 14:24] LABS: BILIRUBIN Negative (Negative); BLOOD Negative (Negative); CLARITY Clear (Clear); COLOR Yellow (Yellow); GLUCOSE Negative (Negative); KETONE Negative (Negative); LEUKO ESTERASE Negative (Negative); NITRITE Negative (Negative); PH 5.5 (4.5-8.0); UROBILINOGEN 0.2 E.U./dl (0.0-1.0)
[2024-08-01 14:50] LABS: POTASSIUM 4.5 mmol/L (3.4-5.1)
== END | disposition home or self-care (01) ==
LOC: LAB 13:36
PROVIDERS: ATTEND Internal Medicine Nephrology
DX: N18.30 Chronic kidney disease, stage 3 unspecified (principal)

== ENCOUNTER → 2024-08-03 | Outpatient (CLI) | payer MEDICARE | END | disposition home or self-care (01) | LOC: MRI 01:08 | PROVIDERS: ATTEND Nurse Practitioner Psychiatric/Mental Health | DX: M47.26 Other spondylosis with radiculopathy, lumbar region (principal); M47.22 Other spondylosis with radiculopathy, cervical region; M48.07 Spinal stenosis, lumbosacral region; M48.02 Spinal stenosis, cervical region; M43.22 Fusion of spine, cervical region; M51.46 Schmorl's nodes, lumbar region; M25.78 Osteophyte, vertebrae; G89.29 Other chronic pain; Z98.890 Other specified postprocedural states ==